=== PATIENT | male | born 1955 | race Caucasian/White ===

== ENCOUNTER 2017-06-10 11:24 | Observation (INO) | payer SELFPAY ==
[~2017-06-10 11:24] MED LIST: Gadobenate Dimeglumine 529 MG/1 ML (20ML VIAL) ONE
[2017-06-10] MEDS ORDERED: Dexamethasone 10 MG/ML VIAL ONE (12:14)
--- NOTE | 2017-06-10 15:23 | HP ---
PRIMARY CARE PHYSICIAN: Dr. Eliazar Mcbride. REASON FOR ADMISSION: Dizziness. HISTORY OF PRESENT ILLNESS: A 61-year-old male who has a previous history of ischemic CVA as well as hypertension, diabetes type 2, and dyslipidemia, who initially went to [facility] for adalgisa luation of dizziness. The patient reports that this morning, he went [place] the post [place]. At that ti me, he was perfectly fine, but when he was returning from post office, he felt dizziness and spinning sensation in his head and he had with diaphoresis. The patient reports that he did not eat breakfas t this morning. He did not have any motor weakness. There was no slurred speech. He did not feel a ny tingling, numbness on any side of his extremity. The patient felt that he had exactly similar sym ptoms when he had a stroke in 03/2016 and that is why he concerned about and decided to go to local e mergency room. Patient had CT brain at [facility] which showed edema in the left frontal lobe, but without any other acute intracranial process and routine blood test was unremarkable. For further evaluation, this patient was transferred to our emergency room. Routine blood tests showed g lucose level 74 and potassium was 3.4. Patient denies any seizure activity. Patient reports that no rmally he is able to walk without any problem, but he sometimes trips without any reason. He denies any fever or chills. He denies any nausea, vomiting, headache. He denies any UTI symptoms . He denies any constipation, diarrhea, abdominal pain. He denies any palpitations or syncope. PAST MEDICAL HISTORY: 1. Ischemic CVA in 03/2016 2. Hypertension. 3. Diabetes type 2. 4. Dyslipidemia. PAST SURGICAL HISTORY: Tracheostomy several years ago. PAST PSYCHIATRIC HISTORY: Reviewed and negative. SOCIAL HISTORY: Patient lives at home. He drinks alcohol socially. He denies any smoking. He serena es any other illicit drug abuse. FAMILY HISTORY: No strong family history of premature coronary artery disease, stroke, or cancer. EMERGENCY ROOM COURSE: Patient was given aspirin at [facility]. ALLERGIES: No known drug allergy. CURRENT HOME MEDICATIONS: Lipitor 20 mg p.o. at bedtime and metformin 500 mg p.o. twice daily. REVIEW OF SYSTEMS: The following complete review of systems was negative, unless otherwise mentioned in the HPI or below: Constitutional: Weight loss or gain, ability to conduct usual activities. Sk in: Rash, itching. Eyes: Double vision, pain. ENT/Mouth: Nose bleeding, neck stiffness, pain, te nderness. Cardiovascular: Palpitations, dyspnea on exertion, orthopnea. Respiratory: Shortness of breath, wheezing, cough, hemoptysis, fever, or night sweats. Gastrointestinal: Poor appetite, abdo kane pain, heartburn, nausea, vomiting, constipation, or diarrhea. Genitourinary: Urgency, frequen cy, dysuria, nocturia. Musculoskeletal: Pain, swelling. Neurologic/Psychiatric: Anxiety, depressi on. Allergy/Immunologic: Skin rash, bleeding tendency. Please see my HPI for pertinent positive an d negative. All other review of system reviewed and negative except as mentioned in HPI. PHYSICAL EXAMINATION: VITAL SIGNS: Currently, blood pressure 118/80, pulse 83, respiratory rate 19, temperature 98.3, satu ration 99% on room air, weight 74.8 kilograms. GENERAL: The patient is currently alert, awake, in no acute distress. HEENT: Head: Normocephalic, atraumatic. Eyes: Pupils round, reactive to light. Extraocular muscl e intact. ENT: Oropharynx within normal limits. Moist mucous membranes. No oral lesion, no pharyn geal erythema, no exudate. NECK: Supple, no JVD, no thyromegaly, no carotid bruit, no jugular venous distention. LUNGS: Clear to auscultation without any rhonchi or rales. CARDIAC: S1 and S2 regular without any murmur. ABDOMEN: Soft, bowel sounds present, nontender, nondistended. No organomegaly, no mass, no suprapub ic tenderness. BACK EXAMINATION: Unremarkable, no CVA tenderness. EXTREMITIES: Upper extremities, passive movement of all joints are normal. Lower extremities: No e hira. Good peripheral pulsation. SKIN: No skin rash. HEMATOLOGICAL SYSTEM: No lymphadenopathy. PSYCHIATRIC: Normal affect. NEUROLOGIC: Nonfocal examination. Patient is alert and oriented x3. Cranial nerves II-XII intact. Motor and sensation within normal limits. No focal neurological deficit. No cerebellar sign. Plan tar bilateral flexor. SIGNIFICANT LABORATORY DATA: 1. CBC: WBC 12.6, hemoglobin 16.0, platelets 234. INR 0.9. 2. BMP: Sodium 140, potassium 3.4, chloride 102, carbon dioxide 26, anion gap 15, BUN 16, creatinin e 0.94, glucose 74, calcium 10.0. 3 LFT: AST 17, ALT 18, alkaline phosphatase 95, albumin 4.2. Alcohol level less than 10. 4. CT brain showing no acute intracranial process, probable frontal lobe edema. 5. EKG showing normal sinus rhythm without any ischemic changes. ASSESSMENT AND PLAN: 1. Dizziness. Differential diagnosis is hypoglycemia. His blood sugar was found with 74 when he we nt to [facility], associated diaphoresis and dizziness that could be from hypoglycemia now . CT brain finding of probable edema in his left frontal lobe and underlying mass cannot be entirely excluded. That is why we will do MRI brain, but our probability of having underlying tumor is less likely, given he does not have any headache and acute onset of symptoms argues against brain tumor. Underlying cardiac arrhythmia also needs to be excluded and that is why he will need cardiac monitori ng and we will do serial cardiac enzymes to rule out acute coronary syndrome and check lipid profile tomorrow morning and observe neurologically while in hospital. 2. Diabetes, type 2. We will continue insulin as per sliding scale per protocol. Diabetic diet kate l be given. 3. Dyslipidemia. We will check lipid profile tomorrow and continue Lipitor 20 mg p.o. at bedtime. 4. Hypertension, currently well controlled. We will use p.r.n. basis blood pressure medication. If blood pressure requires any medication then we will start lisinopril on his regimen. For further ev aluation, we will also do carotid Doppler and echocardiography during this admission. 5. Deep venous thrombosis prophylaxis not needed, because we are expecting discharge in 24 hours. 6. Gastrointestinal prophylaxis, Pepcid 20 mg p.o. b.i.d. CODE STATUS: Patient is FULL CODE. Patient's daughter is surrogate decision maker. Disposition plan based on above-mentioned investigation results, likely within 24-48 hours. Neurosgoevanny mccann will be consulted for their opinion as well.
[2017-06-10] MEDS ORDERED: Loperamide HCl 2 MG CAP PO PRN (15:36)
[2017-06-10] MEDS ORDERED: Chloraseptic Spray 180 ml Bottle PO PRN (15:36)
[2017-06-10] MEDS ORDERED: Milk Of Magnesia 30 ML UDCUP PO PRN (15:36)
[2017-06-10] MEDS ORDERED: Sodium Chloride 0.65% Nasal 44 ML BOT EA NARE PRN (15:36)
[2017-06-10] MEDS ORDERED: hydrALAZINE 20 MG/ML VIAL SLOW IVP PRN (15:36)
[2017-06-10] MEDS ORDERED: Artificial Tears 18 DROP/0.9 ML EA EYE PRN (15:36)
[2017-06-10] MEDS ORDERED: Potassium Chloride 20 MEQ TAB PO SCH (15:36)
[2017-06-10] MEDS ORDERED: Mag-Al 1200 mg/1200 mg/30 ML UDCUP PO PRN (15:36)
[2017-06-10] MEDS ORDERED: Dextrose 5% in Water 1,000 ML IV PRN (15:36)
[2017-06-10] MEDS ORDERED: Ondansetron HCl/PF 4 MG/2 ML Vial IVP PRN (15:36)
[2017-06-10] MEDS ORDERED: Senokot 8.6 MG TAB PO PRN (15:36)
[2017-06-10] MEDS ORDERED: Acetaminophen 325 MG TAB PO PRN (15:36)
[2017-06-10] MEDS ORDERED: HumaLOG 300 UNITS/3 ML VIAL SC PRN (15:36)
[2017-06-10] MEDS ORDERED: Ondansetron ODT 4 MG TAB PO PRN (15:36)
[2017-06-10] MEDS ORDERED: Loratadine 10 MG TAB PO PRN (15:36)
[2017-06-10] MEDS ORDERED: HYDROcodone/Acetaminophen 5/325 mg Tablet PO PRN (15:36)
[2017-06-10] MEDS ORDERED: Zolpidem Tartrate 5 MG TAB PO PRN (15:36)
[2017-06-10] MEDS ORDERED: Dextrose 50% Abboject 50 ML SYRINGE SLOW IVP PRN (15:36)
[2017-06-10] MEDS ORDERED: Diabetic Tussin 200 MG/10 ML UDCUP PO PRN (15:36)
[2017-06-10] MEDS ORDERED: Eucerin (Mineral Oil/Petrolatum,White) 30 gm Jar TOP PRN (15:36)
[2017-06-10 15:53] VITALS: BMI 25.0
--- NOTE | 2017-06-10 16:18 | MRI ---
MRI BRAIN WITH AND WITHOUT IV CONTRAST: HISTORY: Facial droop and weakness. Abnormal CT scan. FINDINGS: Correlation is made with the noncontrast CT scan from earlier today. There is ventricular sulcal pro minence due to cortical atrophy. Multiple foci of T2 prolongation in the periventricular white matte r consistent with chronic small vessel ischemic disease. Old lacunar infarct is seen in the left bas al ganglia. No restricted diffusion is identified. No evidence of a transcortical infarct, hemorrha ge, mass, midline shift, or abnormal extraaxial fluid collections is seen. No abnormal post contrast enhancement is noted. There is mild mucosal disease in the paranasal sinuses. IMPRESSION: 1. No CT evidence of acute intracranial process or mass. 2. Cortical atrophy. 3. Chronic small-vessel ischemic disease. 4. Old lacunar infarct in the left basal ganglia. POS: [facility]
[2017-06-10] MEDS: HumaLOG 300 UNITS/3 ML VIAL SC PRN ×2 (17:12→21:10)
--- NOTE | 2017-06-10 18:50 | ULT ---
BILATERAL CAROTID DOPPLER ULTRASOUND: 06/10/17 HISTORY: Dizziness. COMPARISON: None. TECHNIQUE: Real time tripp scale color doppler with spectral analysis of the extracranial carotid arteries was pe rformed and vertebral arteries. There is increased peak systolic velocity in the right external carotid artery. Moderate plaque of william th carotid bulbs. Antegrade flow in both vertebral arteries. No abnormal increased velocity within the internal carotid arteries. There is increased peak systolic velocity within the left external carotid artery. Right ICA/CCA of 1.06, left ICA/CCA ratio of 1.05. IMPRESSION: 1. No hemodynamically significant stenosis of the internal carotid arteries. 2. Antegrade flow both vertebral arteries. 3. Increased peak systolic velocity within the external carotid arteries bilaterally. POS: [facility]
[2017-06-10 19:15] LABS: CKMB 1.5 ng/mL (0-6.6); Troponin I 0.012 ng/mL (< 0.028)
[2017-06-10] MEDS: Famotidine 20 MG TAB PO SCH (20:26)
[2017-06-10] MEDS ORDERED: Atorvastatin Calcium 20 MG TAB PO SCH (21:00)
[2017-06-10 21:26] LABS: CKMB 1.2 ng/mL (0-6.6); Troponin I Less than 0.010 ng/mL (< 0.028)
--- NOTE | 2017-06-11 04:41 | CON ---
DATE OF CONSULTATION: 06/10/2017 This is Eder Mcintosh PA-C dictating for Dr. Gray Santos. This is a 50-minute initial patient consult, which greater than 50% of the exam was spent in counseli ng and coordinating patient's care. Remainder of the exam was spent in review of patient's medical r ecords and review of appropriate imaging studies. CHIEF COMPLAINT: Slurred speech. HISTORY OF PRESENT ILLNESS: Mr. Francis is a pleasant 61-year-old male who presents to [facility] with complaints of slurred speech. The patient states he was overall not feeling well ear lier today and had an episode of left frontal headache and slurred speech with nausea and vomiting an d an episode of blurred vision. Currently, his symptoms have resolved other than some left frontal h eadache. The patient states that he has a history of CVA, which he believes occurred on the right, w hich had similar presenting symptoms; however, no residual weakness in the arms or legs. He was give n 325 mg aspirin in the ER, he was thought to have an acute stroke. Review of patient's head CT show s a small amount of vasogenic edema and perhaps atrophy in the left frontal and paraventricular area. Neurosurgery is asked to consult regarding this. On physical examination, the patient is awake, alert, and appropriate. His GCS currently is 15. His speech is clear and coherent. Follows commands equally in all 4 extremities. Pupils are equal, rou nd and reactive bilaterally. There is no horizontal nystagmus. He has no pronator drift. He has fu ll strength with perhaps trace weakness in the left upper extremity, but otherwise has full strengths in all the other extremities. He is able to correctly identify a pen and correctly define the defin ition of an island. IMPRESSION DIAGNOSIS: History of cerebrovascular accident with edema noted in the left frontal area on CT scan. PLAN: We have ordered an MRI of the brain with and without contrast in review of this shows no jose elias rning brain mass. It is likely that this is edema related to previous CVA. Nonetheless, the patient does not require neurosurgical intervention. We will allow our medical colleagues to continue gaurang p for the patient, although we will plan for repeat MRI in the next 6 weeks on an outpatient basis. The patient is currently neurologically stable and there is no need for repeat or any additional imag ing from our standpoint. Please call with any questions or changes in patient's neurologic status.
[2017-06-11 06:04] LABS: #Lymphocytes 0.9 thou/uL (1.20-3.40); #Monocytes 0.4 thou/uL (0.11-0.59); #Neutrophils 9.4 thou/uL (1.40-6.50); %Basophils 0.4 % (0.0-1.0); %Eosinophils 0.1 % (0.0-10.0); %Lymphocytes 8.5 % (21.0-51.0); %Monocytes 3.3 % (0.0-10.0); %Neutrophils 87.8 % (42.0-75.0); Hemoglobin 14.3 g/dL (14.0-18.0); Mean Corpuscular HGB CONC 33.6 g/dL (32.0-36.0); Mean Corpuscular Hemoglobin 30.5 pg (27.0-31.0); Mean Corpuscular Volume 90.6 fl (80.0-94.0); Mean Platelet Volume 8.9 fL (7.4-10.4); Platelet Count 208 thou/uL (130-400); RBC Distribution Width 11.7 % (11.5-14.5); Red Blood Cell (RBC) Count 4.68 mill/uL (4.70-6.10); White Blood Cell (WBC) Count 10.7 thou/uL (4.8-10.8)
[2017-06-11] MEDS: HumaLOG 300 UNITS/3 ML VIAL SC PRN ×2 (06:06→12:30)
[2017-06-11 06:16] LABS: Anion Gap 15 mmol/L (10-20); BUN (Urea Nitrogen) 23 mg/dL (8.4-25.7); Calc. Creatinine Clearance 76 mL/min (70-130); Calcium 9.5 mg/dL (7.8-10.44); Carbon Dioxide 23 mmol/L (23-31); Chloride 101 mmol/L (98-107); Cholesterol 178 mg/dl (< 200 Desired); Estimated GFR-MDRD 74; Glucose 304 mg/dL (80-115); HDL Cholesterol 59 mg/dL (>60 Neg Risk); LDL Cholesterol, Calculated 109 mg/dL; Potassium 4.7 mmol/L (3.5-5.1); Sodium 134 mmol/L (136-145); Triglycerides 49 mg/dL (Less than 150)
[2017-06-11] MEDS ORDERED: metFORMIN 500 MG TAB PO SCH (08:00)
[2017-06-11] MEDS: Famotidine 20 MG TAB PO SCH (08:41)
[2017-06-11] MEDS ORDERED: Non-Formulary Item 1 EACH (Insulin Glargine,Hum.Rec.Anlog [Lantus] 20 UNITS) SQ SCH (09:00)
[2017-06-11] MEDS ORDERED: Escitalopram Oxalate 10 mg Tablet PO SCH (09:00)
[2017-06-11] MEDS ORDERED: Insulin Detemir 100 UNITS/ML 20 UNITS in Pre-Filled Syringe 1 EACH SC SCH (09:00)
--- NOTE | 2017-06-11 09:45 | PDOC.PN ---
- Subjective Encounter Start Date: 06/11/17 Encounter Start Time: 07:10 - Objective Resuscitation Status: Resuscitation Status FULL:Full Resuscitation MAR Reviewed: Yes Vital Signs & Weight: Vital Signs (12 hours) Temp Pulse Resp BP Pulse Ox 06/11/17 08:06 97.7 F 77 16 06/11/17 08:00 97.8 F 80 16 144/81 H 99 06/11/17 04:00 97.7 F 77 16 141/72 H 98 06/11/17 00:00 97.5 F L 70 16 154/78 H 98 Weight Weight 160 lb I&O: 06/10/17 06/11/17 06/12/17 06:59 06:59 06:59 Intake Total 360 Balance 360 Result Diagrams: 06/11/17 05:18 06/11/17 05:18 Additional Labs: Accuchecks 06/11/17 06/10/17 06/10/17 05:46 20:57 16:11 POC Glucose 250 H 325 H 346 H EKG Reviewed by me: Yes Phys Exam - Physical Examination Constitutional: NAD HEENT: PERRLA, moist MMs, sclera anicteric Neck: no JVD, supple Respiratory: no wheezing, no rales, no rhonchi Cardiovascular: RRR, no significant murmur, no rub Gastrointestinal: soft, non-tender, no distention, positive bowel sounds Musculoskeletal: no edema, pulses present Neurological: non-focal, normal sensation, moves all 4 limbs Psychiatric: normal affect, A&O x 3 Skin: no rash, normal turgor Dx/Plan (1) Dizziness Code(s): R42 - DIZZINESS AND GIDDINESS Status: Acute (2) Orthostatic hypotension Code(s): I95.1 - ORTHOSTATIC HYPOTENSION Status: Acute (3) Depression Code(s): F32.9 - MAJOR DEPRESSIVE DISORDER, SINGLE EPISODE, UNSPECIFIED Status : Chronic (4) Diabetes type 2, controlled Code(s): E11.9 - TYPE 2 DIABETES MELLITUS WITHOUT COMPLICATIONS Status: Chronic (5) Dyslipidemia Code(s): E78.5 - HYPERLIPIDEMIA, UNSPECIFIED Status: Chronic (6) Hypertension Code(s): I10 - ESSENTIAL (PRIMARY) HYPERTENSION Status: Chronic - Plan cont current plan of care * medication reviewed as below * symptomatic treatment * stable for discharge after echo done * see discharge summery Review of Systems - Review of Systems Eyes: negative: Pain, Vision Change, Conjunctivae Inflammation, Eyelid Inflammation, Redness, Other ENT: negative: Ear Pain, Ear Discharge, Nose Pain, Nose Discharge, Nose Congestion, Mouth Pain, Mouth Swelling, Throat Pain, Throat Swelling, Other Respiratory: negative: Cough, Dry, Shortness of Breath, Hemoptysis, SOB with Excertion, Pleuritic Pain, Sputum, Wheezing Cardiovascular: negative: chest pain, palpitations, orthopnea, paroxysmal nocturnal dyspnea, edema, light headedness, other Gastrointestinal: negative: Nausea, Vomiting, Abdominal Pain, Diarrhea, Constipation, Melena, Hematochezia, Other Genitourinary: negative: Dysuria, Frequency, Incontinence, Hematuria, Retention , Other Musculoskeletal: negative: Neck Pain, Shoulder Pain, Arm Pain, Back Pain, Hand Pain, Leg Pain, Foot Pain, Other Skin: negative: Rash, Lesions, Levy, Bruising, Other - Medications/Allergies Allergies/Adverse Reactions: Allergies Allergy/AdvReac Type Severity Reaction Status Date / Time No Known Allergies Allergy Unverified 06/10/17 15:38 Medications: Current Medications Acetaminophen (Tylenol) 650 mg PO Q4H PRN PRN Reason: Headache/Fever or Pain Last Admin: 06/10/17 17:11 Dose: 650 mg Hydrocodone Bitart/Acetaminophen ([place] 5/325) 1 tab PO Q4H PRN PRN Reason: Moderate Pain (4-6) Last Admin: 06/11/17 08:42 Dose: 1 tab Al Hydroxide/Mg Hydroxide (Maalox) 30 ml PO Q6H PRN PRN Reason: Heartburn or Indigestion Artificial Tears (Tears Naturale) 0 drop EA EYE PRN PRN PRN Reason: Dry Eyes Aspirin (Aspirin Chewable) 81 mg PO DAILY [facility] Last Admin: 06/11/17 08:42 Dose: 81 mg Atorvastatin Calcium (Lipitor) 20 mg PO HS [facility] Last Admin: 06/10/17 20:26 Dose: 20 mg Dextrose/Water (Dextrose 50%) 25 gm SLOW IVP PRN PRN PRN Reason: Hypoglycemia Escitalopram Oxalate (Lexapro) 10 mg PO DAILY [facility] Last Admin: 06/11/17 08:42 Dose: 10 mg Famotidine (Pepcid) 20 mg PO BID [facility] Last Admin: 06/11/17 08:41 Dose: 20 mg Glucagon (Glucagon) 1 mg IM PRN PRN PRN Reason: Hypoglycemia Guaifenesin (Robitussin Sf) 200 mg PO Q4H PRN PRN Reason: Cough Hydralazine HCl (Apresoline) 10 mg SLOW IVP Q4H PRN PRN Reason: Systolic BP > 180 Dextrose/Water (D5w) 1,000 mls @ 0 mls/hr IV .Q0M PRN; As Directed PRN Reason: Hypoglycemia Insulin Detemir 20 units/ (Miscellaneous Medication) 0.2 mls @ 0 mls/hr SC DAILY [facility] PRN Reason: As Directed Last Admin: 06/11/17 08:44 Dose: 0.2 mls Insulin Human Lispro (Humalog) 0 units SC .MODERATE SLIDING SC PRN PRN Reason: Moderate Correctional Scale Last Admin: 06/11/17 06:06 Dose: 4 unit Insulin Human Lispro (Humalog) 0 units SC .BEDTIME SLIDING SC PRN PRN Reason: Bedtime Correctional Scale Loperamide HCl (Imodium) 2 mg PO PRN PRN PRN Reason: Diarrhea/Loose Stools Loratadine (Claritin) 10 mg PO DAILYPRN PRN PRN Reason: Sinus Symptoms Magnesium Hydroxide (Milk Of Magnesium) 30 ml PO DAILYPRN PRN PRN Reason: Constipation Metformin HCl (Glucophage) 1,000 mg PO [facility] Last Admin: 06/11/17 08:41 Dose: 1,000 mg Mineral Oil/White Petrolatum (Eucerin Cream) 0 gm TOP BIDPRN PRN PRN Reason: Dry Skin Ondansetron HCl (Zofran Odt) 4 mg PO Q6H PRN PRN Reason: Nausea/Vomiting Ondansetron HCl (Zofran) 4 mg IVP Q6H PRN PRN Reason: Nausea/Vomiting Phenol (Chloraseptic [place] 180 Ml Bot) 0 ml PO PRN PRN PRN Reason: Sore Throat Senna (Senokot) 2 tab PO HSPRN PRN PRN Reason: Constipation Sodium Chloride (Page Nasal [place] 0.65%) 0 ml EA NARE QIDPRN PRN PRN Reason: Nasal Congestion Zolpidem Tartrate (Ambien) 5 mg PO HSPRN PRN PRN Reason: Insomnia Last Admin: 06/10/17 21:10 Dose: 5 mg
--- NOTE | 2017-06-11 10:49 | DIS ---
PRIMARY CARE PHYSICIAN: Dr. Eliazar Mcbride DATE OF ADMISSION: 06/10/2017 DATE OF DISCHARGE: 06/11/2017 DISCHARGE DISPOSITION: Home. PRIMARY DISCHARGE DIAGNOSES: Dizziness due to orthostatic hypotension. SECONDARY DISCHARGE DIAGNOSES: Hypertension, dyslipidemia, diabetes type 2, depression, history of c erebrovascular accident. PRIMARY PROCEDURE/OPERATION: None. RADIOLOGICAL INVESTIGATION: MRI brain did not show any brain mass. It showed old infarction in the basal ganglia on the left side, cortical atrophy and chronic ischemic white matter changes. Carotid Doppler did not show any stenosis. Echocardiography result is pending. SIGNIFICANT LABS: WBC 10.7, hemoglobin 14.3, platelet 208. Sodium 134, potassium 4.7, BUN 23, creat inine 1.02, calcium 9.5, LDL 109. Cardiac enzymes negative. DISCHARGE MEDICATIONS: The patient will continue all his previous medication including amlodipine 10 mg p.o. daily, aspirin 81 mg p.o. daily, Lexapro 10 mg p.o. daily, Lantus 20 units subcu daily, lova statin 20 mg p.o. daily, metformin 1000 mg p.o. daily. CONTRAINDICATIONS: None. CODE STATUS: FULL CODE. INPATIENT CONSULTANTS: None. ALLERGIES: No known drug allergy. DISCHARGE PLAN: Post hospital, the patient is instructed to follow up with primary care physician in 1 week. Primary care physician can follow up on echo result. 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 Neurosurgeon saw this patient and they recommended MRI brain. MRI brain was done an d that ruled out any brain mass or any acute CVA. This patient's orthostatic vitals were positive. We provided patient education about prevention of orthostatic hypotension related symptoms and fall p revention, we are suspecting from diabetic autonomic dysfunction for his orthostatic hypotension rath er than volume depletion. At this point we are going to continue all his previous medication and pat ient education about conservative treatment of orthostatic hypotension is given. His telemetry remai liat unremarkable and serial cardiac enzyme are negative and we ruled out cardiac etiology as well as Neurology etiology while in the hospital. The patient remained asymptomatic while in hospital. We a lso suspected for dizziness one of the reasons is a mild hypoglycemia because patient did not eat on the day when he was having symptoms. Echocardiography is done, but official report is pending by the time of dictation. The patient is seen and examined at bedside. Please see my progress note from today for further deta ils.
[2017-06-11 12:21] VITALS: BP 157/83; TEMP 98.1
--- NOTE | 2017-06-11 14:18 | PRG ---
DATE OF SERVICE: 06/11/2017 This is a 30 minute initial hospital visit note in which 30 minutes were spent in review the imaging, record, evaluation, examination of the patient, and formulation of a plan. Greater than 50% of the time was spent in counseling on Dwain Francis. CHIEF COMPLAINT: Concern of a left basal ganglia mass, but identified to be chronic changes of left- sided stroke. HISTORY OF PRESENT ILLNESS: I reviewed the notes of my colleague Eder Mcintosh PA-C, and agree wit h its content. Mr. Francis is a very pleasant 61-year-old man who evidently reported speech abnormalit y yesterday. In talking with him, the patient states he gets this ever since he had a stroke last ye ar that affected the right side of his body and involving in the left side of the brain. He states h e gets the speech hesitancy when he tries to speak to quickly. The last head CT demonstrated hypoden sity in the left basal ganglia and subcortical white matter and an MRI was recommended. There is an area of encephalomalacia as well in the left basal ganglia. Review of an MRI demonstrates no evidenc e of acute stroke and no evidence of neoplasm. Frankly, it appears to be a chronic infarct. I have told the patient this. PHYSICAL EXAMINATION: He is alert, appropriate, has full strength in his bilateral upper and lower e xtremity myotomes. His speech is fluent. He is alert and appropriate. IMPRESSION AND PLAN: I would recommend dismissal from a neurosurgical standpoint if it is fine with our other consulting colleagues. I do not think there is any need for neurosurgical followup and I s uspect this is just a chronic infarct. Follow up as needed. I will sign off. DIAGNOSIS: History of left basal ganglia stroke.
== END 2017-06-11 13:00 | disposition home or self-care (01) ==
LOC: ERS 11:24 → 2SE 13:34
PROVIDERS: ADMIT Internal Medicine; ATTEND Internal Medicine
DX: I95.1 Orthostatic hypotension (principal); I10 Essential (primary) hypertension; E78.5 Hyperlipidemia, unspecified; E11.9 Type 2 diabetes mellitus without complications; F32.9 Major depressive disorder, single episode, unspecified; Z79.84 Long term (current) use of oral hypoglycemic drugs; Z79.899 Other long term (current) drug therapy; Z86.73 Personal history of transient ischemic attack (TIA), and cerebral infarction without residual deficits
CPT/HCPCS: 36415; 36416; 70553; 80048; 80061; 85025; 93880; 96374; A9579; G0378; J1100; J1815

== ENCOUNTER 2018-04-16 18:59 | Inpatient (IN) | payer SELFPAY ==
--- NOTE | 2018-04-16 20:40 | RAD ---
EXAM: LEFT FOOT THREE VIEWS: 04/16/18 HISTORY: Cellulitis left foot. There are arteriovascular calcifications. There are some degenerative changes with some hallux valgus deformity of the great toe. Mild soft tissue fullness over the dorsal aspect of the forefoot and the second toe. No acute fracture, dislocation or other acute process. IMPRESSION: Mild degenerative changes. Minimal soft tissue swelling over the dorsal aspect of the forefoot and th e second toe. No fracture or dislocation. POS: [facility]
[2018-04-16 23:33] LABS: #Eosinphils 0.1 thou/uL (0.0-0.7); #Monocytes 1.2 thou/uL (0.11-0.59); #Neutrophils 10.1 thou/uL (1.40-6.50); %Basophils 0.2 % (0.0-1.0); %Eosinophils 0.9 % (0.0-10.0); %Lymphocytes 14.7 % (21.0-51.0); %Monocytes 8.8 % (0.0-10.0); %Neutrophils 75.4 % (42.0-75.0); Hemoglobin 13.8 g/dL (14.0-18.0); Mean Corpuscular Hemoglobin 29.7 pg (27.0-31.0); Mean Platelet Volume 7.8 fL (7.4-10.4); Platelet Count 251 thou/uL (130-400); RBC Distribution Width 11.3 % (11.5-14.5); Red Blood Cell (RBC) Count 4.64 mill/uL (4.70-6.10); White Blood Cell (WBC) Count 13.4 thou/uL (4.8-10.8)
[2018-04-16 23:52] LABS: ALT (SGPT) 9 U/L (8-55); AST (SGOT) 10 U/L (5-34); Albumin 3.6 g/dL (3.4-4.8); Alkaline Phosphatase 82 U/L (40-150); Anion Gap 12 mmol/L (10-20); BUN (Urea Nitrogen) 10 mg/dL (8.4-25.7); Bilirubin, Total 0.7 mg/dL (0.2-1.2); Calc. Creatinine Clearance 0 mL/min (70-130); Calcium 9.7 mg/dL (7.8-10.44); Carbon Dioxide 29 mmol/L (23-31); Chloride 100 mmol/L (98-107); Estimated GFR-MDRD 73; Globulin 3.7 g/dL (2.4-3.5); Glucose 101 mg/dL (80-115); Potassium 3.6 mmol/L (3.5-5.1); Protein, Total 7.3 g/dL (5.8-8.1); Sodium 137 mmol/L (136-145)
[2018-04-17] MEDS ORDERED: Piperacillin/Tazobactam 3.375 GM VIAL ONE (00:29)
[2018-04-17] MEDS: Morphine 4 MG/ML VIAL SLOW IVP PRN (02:19)
[2018-04-17] MEDS ORDERED: Bisacodyl 5 MG TAB PO PRN (02:21)
[2018-04-17] MEDS ORDERED: Calcium Carbonate 500 MG ChewTAB PO PRN (02:21)
[2018-04-17] MEDS ORDERED: Dextrose 50% Abboject 50 ML SYRINGE SLOW IVP PRN (02:21)
[2018-04-17] MEDS ORDERED: Dextrose 5% in Water 1,000 ML IV PRN (02:21)
[2018-04-17] MEDS ORDERED: Acetaminophen 325 MG TAB PO PRN (02:21)
[2018-04-17] MEDS ORDERED: HumaLOG 300 UNITS/3 ML VIAL SC PRN (02:21)
[2018-04-17] MEDS ORDERED: Senokot S 8.6-50 MG TAB PO PRN (02:21)
[2018-04-17 02:41] LABS: Bilirubin Negative (Negative); Blood, Urine Trace (Negative); Clarity CLEAR (Clear); Glucose, Urine (Dipstick) 100 mg/dL (Negative); Leukocyte Negative (Negative); Nitrite Negative (Negative); Protein, Urine (Dipstick) 100 mg/dL (Neg-Trace); Specific Gravity, Urine 1.005 (1.002-1.036); Urobilinogen 0.2 mg/dL (0.2-1.0); pH, Urine 6.5 (5.0-9.0)
[2018-04-17 02:44] LABS: Bacteria/HPF None Seen HPF (None Seen); Hyaline Casts/LPF 0-3 HYALINE CAST LPF (0-3 Hyaline); RBC/HPF 0-3 HPF (0-3); Squamous Epithelial None Seen HPF (0-3); WBC/HPF None Seen HPF (0-3)
[2018-04-17 06:18] LABS: #Eosinphils 0.2 thou/uL (0.0-0.7); #Lymphocytes 2.1 thou/uL (1.20-3.40); #Monocytes 0.9 thou/uL (0.11-0.59); #Neutrophils 7.3 thou/uL (1.40-6.50); %Basophils 0.3 % (0.0-1.0); %Eosinophils 1.4 % (0.0-10.0); %Lymphocytes 19.6 % (21.0-51.0); %Neutrophils 69.7 % (42.0-75.0); Mean Corpuscular HGB CONC 33.9 g/dL (32.0-36.0); Mean Corpuscular Hemoglobin 30.9 pg (27.0-31.0); Platelet Count 248 thou/uL (130-400); RBC Distribution Width 11.2 % (11.5-14.5); Red Blood Cell (RBC) Count 4.22 mill/uL (4.70-6.10); White Blood Cell (WBC) Count 10.4 thou/uL (4.8-10.8)
[2018-04-17 06:35] LABS: Anion Gap 12 mmol/L (10-20); BUN (Urea Nitrogen) 9 mg/dL (8.4-25.7); Calc. Creatinine Clearance 90 mL/min (70-130); Calcium 8.9 mg/dL (7.8-10.44); Carbon Dioxide 25 mmol/L (23-31); Chloride 104 mmol/L (98-107); Estimated GFR-MDRD 87; Glucose 86 mg/dL (80-115); Potassium 3.5 mmol/L (3.5-5.1); Sodium 137 mmol/L (136-145)
[2018-04-17] MEDS: Amlodipine 10 MG TAB PO SCH (08:32)
[2018-04-17] MEDS: Aspirin 81 mg Enteric Coated Tablet PO SCH (08:32)
[2018-04-17] MEDS: Escitalopram Oxalate 10 mg Tablet PO SCH (08:33)
[2018-04-17] MEDS: Insulin Glargine 20 UNITS in Pre-Filled Syringe 1 EACH SC SCH (08:33)
[2018-04-17] MEDS: Lovastatin 20 MG TAB PO SCH (08:33)
[2018-04-17] MEDS: Enoxaparin Sodium 40 MG/0.4 ML SYRINGE SC SCH (08:33)
[2018-04-17] MEDS: Famotidine 20 MG TAB PO SCH ×2 (08:33→21:29)
[2018-04-17] MEDS: Famotidine/PF 20 mg/2ml Vial SLOW IVP SCH ×2 (08:34→21:39)
[2018-04-17] MEDS: Vancomycin HCl 1 GM in Premix Bag 1 BAG IVPB SCH ×2 (10:49→21:35)
[2018-04-17] MEDS: HumaLOG 300 UNITS/3 ML VIAL SC PRN (18:10)
--- NOTE | 2018-04-17 21:13 | HP ---
CHIEF COMPLAINT: Left foot blister and ulcer. HISTORY OF PRESENT ILLNESS: This is a 62-year-old male with past medical history of diabetes mellitus type 2, on insulin; hyperlipidemia, hypercholesterolemia, and hypertension, presenting with left second toe blister and ulcer. At this point, the patient states that his left toe is hurting, has a lot of pain and he is also having fevers. Per the patient, last fever was 100. The patient stated that it all started about 3 days prior to the day of admission when he had a blister that popped and started see like a wound, which now has turned to be an ulcer. The patient states that right now he is having severe pain, which is 8/10. Otherwise, the patient denies any chills, nausea, vomiting, dizziness, headaches, chest pain, palpitation, abdominal pain, dysuria, hematuria, hematochezia, constipation, and diarrhea. REVIEW OF SYSTEMS: Positive for fevers and pain, otherwise as documented in the HPI. All systems have been reviewed and are negative. PAST MEDICAL HISTORY: Cerebrovascular accident in 2016; diabetes mellitus, on insulin; hyperlipidemia, hypercholesterolemia, and hypertension. FAMILY HISTORY: Reviewed and noncontributory to this visit. PAST SURGICAL HISTORY: No surgical history. PSYCHIATRIC HISTORY: No previous psych history. SOCIAL HISTORY: The patient drinks daily. The patient denies illicit drug use and the patient currently uses tobacco and chews tobacco. ALLERGIES: NO KNOWN DRUG ALLERGIES. CURRENT MEDICATIONS: The patient takes; 1. Lantus 25 units. 2. Metformin 500 b.i.d. PHYSICAL EXAMINATION: VITAL SIGNS: The patient's blood pressure is 161/77, pulse of 102, respiratory rate of 18, temperature of 99.4, and O2 saturation is 96%. GENERAL: The patient is alert and oriented x3, not in acute distress. HEENT: Normocephalic and atraumatic. Pupils are equally round and reactive to light. Extraocular movements are intact. No scleral icterus. No conjunctival pallor. NECK: Trachea is midline. Full range of motion. LUNGS: Clear to auscultation bilaterally. No wheezing, no rales, no rhonchi appreciated. CARDIAC: Positive S1 and S2. Regular rate and rhythm. No murmurs, no gallops, no rubs appreciated. ABDOMEN: Soft, nontender, and nondistended. Positive bowel sounds in all quadrants. EXTREMITIES: The patient has 5/5 upper extremity strength and good pulses bilaterally at the radial aspect. Lower extremities; the patient has 5/5 lower extremity strength. Sensation is intact. The patient has good pulses at the DP region bilaterally. At the left foot, the patient does have ulceration at the second toe with some erythema. There is odious smell and there is discharge purulent drain at of the second toe. NEUROLOGIC: Cranial nerves 2 through 12 grossly intact. No neurologic deficits noted. SKIN: Kindly refer to left lower extremity description. PSYCHIATRIC: Normal affect. IMAGING DATA: Imaging showed that there was mild degenerate changes, minimal soft tissue swelling over the dorsal aspect of the forefoot and second toe. There is no structural dislocation noted. LABORATORY DATA: WBC is 13.4, hemoglobin is 13.8, hematocrit is 41.8, and platelet count is 251. D-dimer is 0.43. Sodium is 137, potassium is 3.6, chloride is 100, carbon dioxide of 29, BUN is 10, and creatinine is 1.03. Urinalysis is negative for leukocyte esterases and nitrites. ASSESSMENT AND PLAN: This is a 62-year-old male being admitted for; 1. Left second toe ulcer/cellulitis, rule out osteomyelitis. At this time, we have ordered MRI of the left toe. We have started the patient on broad-spectrum vancomycin and Zosyn. We will continue the patient on these medications. We will follow up on cultures and we will tailor antibiotics based on cultures. We will continue to monitor the patient closely. 2. Hypertension. We will monitor the patient's blood pressure closely and we will treat accordingly. 3. Diabetes mellitus. We will continue the patient's insulin sliding scale. Currently, the patient blood glucose is controlled. We will continue to monitor the patient. 4. Hyperlipidemia. Continue the patient on home medications. We will monitor the patient closely. 5. Deep venous thrombosis and gastrointestinal prophylaxis. Job ID: [id number]
[2018-04-17] MEDS: HYDROcodone/Acetaminophen 5/325 mg Tablet PO PRN (21:29)
[2018-04-17] MEDS: Piperacillin/Tazobactam 3.375 GM in Sodium Chloride 0.9% 100 ML IVPB SCH (21:30)
[2018-04-17] MEDS: Zolpidem Tartrate 5 MG TAB PO PRN (21:30)
[2018-04-18] MEDS: Piperacillin/Tazobactam 3.375 GM in Sodium Chloride 0.9% 100 ML IVPB SCH ×4 (03:08→20:18)
[2018-04-18] MEDS: Enoxaparin Sodium 40 MG/0.4 ML SYRINGE SC SCH (09:25)
[2018-04-18] MEDS: Amlodipine 10 MG TAB PO SCH (09:26)
[2018-04-18] MEDS: Lovastatin 20 MG TAB PO SCH (09:26)
[2018-04-18] MEDS: Famotidine 20 MG TAB PO SCH ×2 (09:26→20:19)
[2018-04-18] MEDS: Aspirin 81 mg Enteric Coated Tablet PO SCH (09:26)
[2018-04-18] MEDS: Insulin Glargine 20 UNITS in Pre-Filled Syringe 1 EACH SC SCH (09:26)
[2018-04-18] MEDS: Escitalopram Oxalate 10 mg Tablet PO SCH (09:26)
[2018-04-18] MEDS: Vancomycin HCl 1 GM in Premix Bag 1 BAG IVPB SCH ×2 (11:30→22:19)
[2018-04-18] MEDS: Famotidine/PF 20 mg/2ml Vial SLOW IVP SCH ×2 (12:45→20:20)
[2018-04-18] MEDS: HumaLOG 300 UNITS/3 ML VIAL SC PRN (12:48)
--- NOTE | 2018-04-18 15:04 | PDOC.PN ---
- Subjective Encounter Start Date: 04/18/18 Encounter Start Time: 15:03 Patient lying in bed, he reports feeling better today. No chest pain, shortness of breath or abdominal pain. He reports pain in left foot and ankle, however improved. - Objective Resuscitation Status - Order Detail: 04/17/18 02:21 Resuscitation Status Routine Resuscitation Status: FULL: Full Resuscitation MAR Reviewed: Yes Vital Signs & Weight: Vital Signs (12 hours) Temp Pulse Resp BP Pulse Ox 04/18/18 11:04 98.3 F 94 18 152/76 H 97 04/18/18 09:26 84 04/18/18 07:23 97.6 F 84 18 162/83 H 98 Weight Weight 166 lb 3.2 oz I&O: 04/17/18 04/18/18 04/19/18 06:59 06:59 06:59 Intake Total 400 Balance 400 Result Diagrams: 04/17/18 05:33 04/17/18 05:33 Additional Labs: Accuchecks 04/18/18 04/18/18 04/17/18 11:04 06:02 20:48 POC Glucose 229 H 114 H 99 04/17/18 16:00 POC Glucose 198 H Radiology Reviewed by me: Yes Phys Exam - Physical Examination Constitutional: NAD HEENT: PERRLA, moist MMs, oral pharynx no lesions, 2+ tonsils Neck: no nodes, no JVD Respiratory: no wheezing, no rales, clear to auscultation bilateral Cardiovascular: RRR, no significant murmur, no rub Gastrointestinal: soft, non-tender, positive bowel sounds Musculoskeletal: no edema, pulses present Neurological: non-focal, normal sensation, moves all 4 limbs Lymphatic: no nodes Psychiatric: normal affect, A&O x 3 Skin: no rash, normal turgor, cap refill <2 seconds Deviation from normal: ulcer present with dressing left second toe Dx/Plan (1) Ulcer of left second toe Code(s): L97.529 - NON-PRESSURE CHRONIC ULCER OTH PRT LEFT FOOT W UNSP SEVERITY Status: Acute (2) Diabetes type 2, controlled Code(s): E11.9 - TYPE 2 DIABETES MELLITUS WITHOUT COMPLICATIONS Status: Chronic (3) Dyslipidemia Code(s): E78.5 - HYPERLIPIDEMIA, UNSPECIFIED Status: Chronic (4) Hypertension Code(s): I10 - ESSENTIAL (PRIMARY) HYPERTENSION Status: Chronic - Plan cont current plan of care, continue antibiotics, DVT proph w/lovenox * Continue IV abx, 1 of 2 blood cultures positive, will order repeat cultures * Await MRI results, if concern for osteo ortho services will be consulted as well as ID * Continue other home medications * Pain management * Wound care * Monitor vitals and labs, White count improved
--- NOTE | 2018-04-18 15:58 | MRI ---
LEFT FOOT MRI WITHOUT IV CONTRAST: HISTORY: Blister on the top of the second toe that opened up several days ago with drainage, swelling, and soniya n without injury. FINDINGS: Multiplanar, multisequence MRI examination of the foot is performed. There is some soft tissue swell ing noted involving the distal second toe. Abnormal T2 hyperintense and T1 hypointense and STIR hype rintense abnormal signal within the middle and distal phalanges of the second toe, particularly the d istal phalanx, evidence for osteomyelitis. There is irregularity of the distal interphalangeal joint of the second toe, evidence for associated presumed septic arthritis. Arthrosis and degenerative ch anges are noted including the 1st metatarsophalangeal joint. No evidence for a drainable abscess. IMPRESSION: Evidence for osteomyelitis involving the middle and distal phalanges of the second toe with surroundi ng soft tissue cellulitis and abnormal distal interphalangeal joint consistent with coexistent presum ed septic arthritis. No drainable abscess. Generalized degenerative changes. POS: CHE
[2018-04-18] MEDS: HYDROcodone/Acetaminophen 5/325 mg Tablet PO PRN (20:18)
[2018-04-18] MEDS: Zolpidem Tartrate 5 MG TAB PO PRN (20:18)
[2018-04-18 21:56] LABS: Vancomycin, Trough 13.4 ug/mL
[2018-04-18] MEDS: Morphine 4 MG/ML VIAL SLOW IVP PRN (22:24)
[2018-04-19] MEDS: HYDROcodone/Acetaminophen 5/325 mg Tablet PO PRN ×2 (01:43→21:20)
[2018-04-19] MEDS: Piperacillin/Tazobactam 3.375 GM in Sodium Chloride 0.9% 100 ML IVPB SCH (04:02)
[2018-04-19] MEDS ORDERED: Sodium Chloride 0.65% Nasal 44 ML BOT EA NARE PRN (07:02)
[2018-04-19] MEDS ORDERED: Artificial Tears 18 DROP/0.9 ML EA EYE PRN (07:02)
[2018-04-19] MEDS ORDERED: hydrALAZINE 20 MG/ML VIAL SLOW IVP PRN (07:02)
[2018-04-19] MEDS ORDERED: Ondansetron ODT 4 MG TAB PO PRN (07:02)
[2018-04-19] MEDS ORDERED: Diabetic Tussin 200 MG/10 ML UDCUP PO PRN (07:02)
[2018-04-19] MEDS ORDERED: Loperamide HCl 2 MG CAP PO PRN (07:02)
[2018-04-19] MEDS ORDERED: Cepastat Lozenges 1 LOZ PO PRN (07:02)
[2018-04-19] MEDS ORDERED: Ondansetron PF 4 MG/2 ML Vial IVP PRN (07:02)
[2018-04-19] MEDS ORDERED: Eucerin (Mineral Oil/Petrolatum,White) 30 gm Jar TOP PRN (07:02)
[2018-04-19] MEDS ORDERED: Loratadine 10 MG TAB PO PRN (07:02)
[2018-04-19 07:54] LABS: #Eosinphils 0.3 thou/uL (0.0-0.7); #Lymphocytes 1.4 thou/uL (1.20-3.40); #Monocytes 0.7 thou/uL (0.11-0.59); #Neutrophils 2.8 thou/uL (1.40-6.50); %Basophils 0.4 % (0.0-1.0); %Eosinophils 4.9 % (0.0-10.0); %Lymphocytes 27.6 % (21.0-51.0); %Monocytes 12.7 % (0.0-10.0); %Neutrophils 54.3 % (42.0-75.0); Mean Corpuscular HGB CONC 32.8 g/dL (32.0-36.0); Mean Corpuscular Hemoglobin 29.6 pg (27.0-31.0); Mean Corpuscular Volume 90.2 fL (78.0-98.0); Mean Platelet Volume 7.7 fL (7.4-10.4); Platelet Count 254 thou/uL (130-400); RBC Distribution Width 11.1 % (11.5-14.5); White Blood Cell (WBC) Count 5.2 thou/uL (4.8-10.8)
[2018-04-19] MEDS ORDERED: Vancomycin HCl 1 GM in Premix Bag 1 BAG IVPB SCH (08:00)
[2018-04-19 08:19] LABS: Anion Gap 12 mmol/L (10-20); BUN (Urea Nitrogen) 9 mg/dL (8.4-25.7); Calc. Creatinine Clearance 82 mL/min (70-130); Calcium 9.1 mg/dL (7.8-10.44); Carbon Dioxide 26 mmol/L (23-31); Chloride 102 mmol/L (98-107); Estimated GFR-MDRD 78; Glucose 167 mg/dL (80-115); Potassium 4.1 mmol/L (3.5-5.1); Sodium 136 mmol/L (136-145)
--- NOTE | 2018-04-19 08:26 | HP ---
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 He lives by himself. Family lives nearby. He is insulin-dependent diabetic with hypertension and has developed a left second toe ulceration, demonstrating osteo by MRI. He has an ulceration over the distal phalanx and communicating with the phalanx and interphalangeal joint. Plan is for amputation of left second toe through the proximal phalanx, healing by secondary intention. We could do this under regional or general anesthesia. He is n.p.o. Hospitalist has admitted him and placed him on intravenous antibiotics, ceftriaxone without vancomycin. ALLERGIES: NONE. SOCIAL HISTORY: Tobacco, none. Alcohol, none. HOME MEDICATIONS: 1. Aspirin 81 mg a day. 2. Amlodipine 10 mg a day. 3. Metformin 1000 mg . 4. Lovastatin 20 mg daily. 5. Insulin 20 units subcu daily. 6. Escitalopram oxalate 10 mg daily. PAST SURGICAL HISTORY: Noncontributory. PAST MEDICAL HISTORY: Hypertension, diabetes. REVIEW OF SYSTEMS: Ten-point noncontributory. FAMILY HISTORY: Noncontributory. PHYSICAL EXAMINATION: VITAL SIGNS: Height 5 feet and 7 inches, 166 pounds, 26 BMI. Temperature 98.2, pulse 65, blood pressure 131/73. HEAD, EARS, EYES, NOSE AND THROAT: Unremarkable. LUNGS: Clear to auscultation. CARDIAC: Regular rate and rhythm without murmur or gallop. ABDOMEN: Soft and nontender. EXTREMITIES: Unremarkable. Left foot palpable posterior tibial. Hair on his foot and toes. Left second toe reveals that it is edematous, cellulitic, cellulitis extends over the dorsum of the foot to the mid foot. There is an open wound in the medial aspect of the left second toe the interphalangeal joint. There is marked swelling, edema, and redness. There is necrotic tissue. LABORATORY DATA: White count 10, hemoglobin 13. Accu-Cheks 99 to 229. Renal function is normal. ASSESSMENT AND PLAN: Diabetic infection of left second toe. We would recommend amputation of left second toe through the proximal phalanx. We will keep him n.p.o. and plan on doing this today. He understands the risks and benefits. Outpatient wound care can be arranged with a wound VAC. The patient states he has transportation to the hospital that he would like to do this with [facility] twice a week. After amputation, the patient will be on intravenous antibiotics in the hospital and then can be converted to oral antibiotics for 10 days and undergo wound VAC care with healing by secondary intention. I can see him in outpatient wound care clinic. [facility] will do wound VAC care. We would see him in about a week and a half. Anticipate discharge home mid week on oral antibiotics for 10 days. Job ID: [id number]
[2018-04-19] MEDS: Escitalopram Oxalate 10 mg Tablet PO SCH (09:20)
[2018-04-19] MEDS: Famotidine 20 MG TAB PO SCH ×2 (09:20→21:22)
[2018-04-19] MEDS: Saccharomyces boulardii 250 MG CAP PO SCH (09:20)
[2018-04-19] MEDS: Amlodipine 10 MG TAB PO SCH (09:20)
[2018-04-19] MEDS: Lovastatin 20 MG TAB PO SCH (09:21)
[2018-04-19] MEDS: cefTRIAXone\\ROCEPHIN 2 GM in Sodium Chloride 0.9% 100 ML IVPB SCH (09:21)
--- NOTE | 2018-04-19 09:48 | PDOC.PN ---
- Subjective Encounter Start Date: 04/19/18 Encounter Start Time: 07:50 Patient seen and examined. No new complaints. No overnight events - Objective Resuscitation Status - Order Detail: 04/17/18 02:21 Resuscitation Status Routine Resuscitation Status: FULL: Full Resuscitation MAR Reviewed: Yes Vital Signs & Weight: Vital Signs (12 hours) Temp Pulse Resp BP BP Pulse Ox 04/19/18 09:20 66 148/76 H 04/19/18 07:13 97.9 F 66 18 148/76 H 97 04/19/18 04:00 98.2 F 65 18 131/73 96 04/19/18 00:00 98.0 F 69 18 143/74 H 97 Weight Weight 166 lb 3.2 oz I&O: 04/18/18 04/19/18 04/20/18 06:59 06:59 06:59 Intake Total 400 800 950 Balance 400 800 950 Result Diagrams: 04/19/18 07:31 04/19/18 07:31 Additional Labs: Accuchecks 04/19/18 04/18/18 04/18/18 06:28 20:19 16:05 POC Glucose 149 H 200 H 169 H 04/18/18 11:04 POC Glucose 229 H Phys Exam - Physical Examination Constitutional: NAD HEENT: PERRLA, moist MMs, sclera anicteric Neck: no JVD, supple Respiratory: no wheezing, no rales, no rhonchi Cardiovascular: RRR, no significant murmur, no rub Gastrointestinal: soft, non-tender, no distention, positive bowel sounds Musculoskeletal: no edema, pulses present 2nd toe cellulitis, ulcer Neurological: non-focal, normal sensation, moves all 4 limbs Lymphatic: no nodes Psychiatric: normal affect, A&O x 3 Skin: no rash, normal turgor Dx/Plan (1) Bacteremia due to methicillin susceptible Staphylococcus aureus (MSSA) Code(s): R78.81 - BACTEREMIA Status: Acute (2) Diabetic foot infection Code(s): E11.628 - TYPE 2 DIABETES MELLITUS WITH OTHER SKIN COMPLICATIONS; L08.9 - LOCAL INFECTION OF THE SKIN AND SUBCUTANEOUS TISSUE, UNSP Status: Acute (3) Osteomyelitis of toe of left foot Code(s): M86.9 - OSTEOMYELITIS, UNSPECIFIED Status: Acute (4) Sepsis Code(s): A41.9 - SEPSIS, UNSPECIFIED ORGANISM Status: Acute (5) Diabetes type 2, controlled Code(s): E11.9 - TYPE 2 DIABETES MELLITUS WITHOUT COMPLICATIONS Status: Chronic (6) Dyslipidemia Code(s): E78.5 - HYPERLIPIDEMIA, UNSPECIFIED Status: Chronic (7) Hypertension Code(s): I10 - ESSENTIAL (PRIMARY) HYPERTENSION Status: Chronic - Plan cont current plan of care, continue antibiotics * medication reviewed as below * symptomatic treatment * today plan for surgery, toe amputation * change antibiotic to rocephin. Review of Systems - Review of Systems ENT: negative: Ear Pain, Ear Discharge, Nose Pain, Nose Discharge, Nose Congestion, Mouth Pain, Mouth Swelling, Throat Pain, Throat Swelling, Other Respiratory: negative: Cough, Dry, Shortness of Breath, Hemoptysis, SOB with Excertion, Pleuritic Pain, Sputum, Wheezing Cardiovascular: negative: chest pain, palpitations, orthopnea, paroxysmal nocturnal dyspnea, edema, light headedness, other Gastrointestinal: negative: Nausea, Vomiting, Abdominal Pain, Diarrhea, Constipation, Melena, Hematochezia, Other Genitourinary: negative: Dysuria, Frequency, Incontinence, Hematuria, Retention , Other Musculoskeletal: negative: Neck Pain, Shoulder Pain, Arm Pain, Back Pain, Hand Pain, Leg Pain, Foot Pain, Other Skin: negative: Rash, Lesions, Levy, Bruising, Other - Medications/Allergies Allergies/Adverse Reactions: Allergies Allergy/AdvReac Type Severity Reaction Status Date / Time No Known Allergies Allergy Unverified 06/10/17 15:38 Medications: Current Medications Acetaminophen (Tylenol) 650 mg PO Q4H PRN PRN Reason: Headache/Fever/Mild Pain (1-3) Hydrocodone Bitart/Acetaminophen ([place] 5/325) 1 tab PO Q4H PRN PRN Reason: Moderate Pain (4-6) Last Admin: 04/19/18 01:43 Dose: 1 tab Amlodipine Besylate (Norvasc) 10 mg PO DAILY [facility] Last Admin: 04/19/18 09:20 Dose: 10 mg Artificial Tears (Tears Naturale) 2 drop EA EYE PRN PRN PRN Reason: Dry Eyes Aspirin (Ecotrin) 81 mg PO DAILY [facility] Last Admin: 04/18/18 09:26 Dose: 81 mg Bisacodyl (Dulcolax) 10 mg PO DAILYPRN PRN PRN Reason: Constipation Calcium Carbonate (Tums) 1,000 mg PO Q4H PRN PRN Reason: Heartburn or Indigestion Dextrose/Water (Dextrose 50%) 25 gm SLOW IVP PRN PRN PRN Reason: Hypoglycemia Enoxaparin Sodium (Lovenox) 40 mg SC 0900 [facility] Last Admin: 04/18/18 09:25 Dose: 40 mg Escitalopram Oxalate (Lexapro) 10 mg PO DAILY [facility] Last Admin: 04/19/18 09:20 Dose: 10 mg Famotidine (Pepcid) 20 mg PO BID [facility] Last Admin: 04/19/18 09:20 Dose: 20 mg Glucagon (Glucagon) 1 mg IM PRN PRN PRN Reason: Hypoglycemia Guaifenesin (Robitussin Sf) 200 mg PO Q4H PRN PRN Reason: Cough Hydralazine HCl (Apresoline) 10 mg SLOW IVP Q4H PRN PRN Reason: SBP > 180 and HR < 70 Dextrose/Water (D5w) 1,000 mls @ 0 mls/hr IV .Q0M PRN PRN Reason: Hypoglycemia Insulin Glargine 20 units/ (Miscellaneous Medication) 0.2 mls @ 0 mls/hr SC DAILY [facility] Last Admin: 04/18/18 09:26 Dose: 0.2 mls Ceftriaxone Sodium 2 gm/ (Sodium Chloride) 100 mls @ 200 mls/hr IVPB Q24HR [facility] Last Admin: 04/19/18 09:21 Dose: 100 mls Vancomycin HCl 1 gm/ Device 200 mls @ 200 mls/hr IVPB ONCALL-OR JAZZY Vancomycin HCl 1 gm/ Device 200 mls @ 200 mls/hr IVPB Q12HR [facility] Insulin Human Lispro (Humalog) 0 units SC .MILD SLIDING SCALE PRN PRN Reason: Mild Correctional Scale Last Admin: 04/18/18 12:48 Dose: 3 unit Insulin Human Lispro (Humalog) 0 units SC .BEDTIME SLIDING SC PRN PRN Reason: Bedtime Correctional Scale Loperamide HCl (Imodium) 2 mg PO PRN PRN PRN Reason: Diarrhea/Loose Stools Loratadine (Claritin) 10 mg PO DAILYPRN PRN PRN Reason: Sinus Symptoms Lovastatin (Mevacor) 20 mg PO DAILY [facility] Last Admin: 04/19/18 09:21 Dose: 20 mg Mineral Oil/White Petrolatum (Eucerin Cream) 0 gm TOP BIDPRN PRN PRN Reason: Dry Skin Morphine Sulfate (Morphine) 2 mg SLOW IVP Q4H PRN PRN Reason: Pain Last Admin: 04/18/18 22:24 Dose: 2 mg Ondansetron HCl (Zofran Odt) 4 mg PO Q6H PRN PRN Reason: Nausea/Vomiting Ondansetron HCl (Zofran) 4 mg IVP Q6H PRN PRN Reason: Nausea/Vomiting Saccharomyces Boulardii (Florastor) 250 mg PO DAILY [facility] Last Admin: 04/19/18 09:20 Dose: 250 mg Senna/Docusate Sodium (Senokot S) 2 tab PO BID PRN PRN Reason: Constipation Sodium Chloride (Flush - Normal Saline) 10 ml IVF PRN PRN PRN Reason: Saline Flush Sodium Chloride (Flush - Normal Saline) 10 ml IVF Q12HR [facility] Last Admin: 04/18/18 20:19 Dose: 10 ml Sodium Chloride ([place] Nasal [place] 0.65%) 0 ml EA NARE QIDPRN PRN PRN Reason: Nasal Congestion Throat Lozenges (Cepastat Lozenges) 1 sarah PO Q2H PRN PRN Reason: Sore Throat Zolpidem Tartrate (Ambien) 5 mg PO HSPRN PRN PRN Reason: Insomnia Last Admin: 04/18/18 20:18 Dose: 5 mg
[2018-04-19] MEDS: Vancomycin HCl 1 GM in Premix Bag 1 BAG IVPB SCH ×2 (11:28→21:20)
[2018-04-19] MEDS: Enoxaparin Sodium 40 MG/0.4 ML SYRINGE SC SCH (11:29)
[2018-04-19] MEDS: Aspirin 81 mg Enteric Coated Tablet PO SCH (11:29)
[2018-04-19] MEDS ORDERED: Propofol 500 MG/50 ML VIAL ONE (11:53)
[2018-04-19] MEDS ORDERED: Fentanyl 100 MCG/2 ML VIAL ONE (11:53)
[2018-04-19] MEDS ORDERED: Acetaminophen 500 MG TAB PO PRN (12:46)
[2018-04-19] MEDS ORDERED: Ibuprofen 600 MG TAB PO PRN (12:46)
[2018-04-19] MEDS ORDERED: traMADol HCl 50 MG TAB PO PRN ×2 (12:46)
[2018-04-19] MEDS ORDERED: Promethazine HCl 25 MG/ML VIAL IM PRN (12:56)
[2018-04-19] MEDS ORDERED: Promethazine HCl 25 MG/ML VIAL SLOW IVP PRN (12:56)
[2018-04-19] MEDS ORDERED: Ondansetron HCl/PF 4 MG/2 ML Vial IVP PRN (12:56)
[2018-04-19 13:17] VITALS: BMI 26.0
--- NOTE | 2018-04-19 13:40 | OP ---
DATE OF PROCEDURE: 04/19/2018 PREOPERATIVE DIAGNOSES: Diabetic infection left second toe with good blood supply, palpable posterior tibial vessel on his foot and toes, osteomyelitis left second toe. POSTOPERATIVE DIAGNOSES: Diabetic infection left second toe with good blood supply, palpable posterior tibial vessel on his foot and toes, osteomyelitis left second toe. PROCEDURE PERFORMED: Amputation of left second toe through the proximal phalanx. ANESTHESIA: Intravenous sedation. DESCRIPTION OF PROCEDURE: The patient was taken to the operating room, where under regional anesthesia and sedation, his left lower extremity was prepared with Betadine and draped in routine fashion. Incision was made for fishmouth type incision and amputation of left second toe through the proximal phalanx were transecting the findings with a bone cutter, then proximally with rongeurs, irrigated the wound, debriding, excising connective tissue, washing the wound. Wound Care Team wiped, placed a wound VAC. Job ID: [id number]
[2018-04-19] MEDS ORDERED: PROPOFOL 200 MG/20 ML VIAL ONE (16:26)
[2018-04-19] MEDS: Insulin Glargine 20 UNITS in Pre-Filled Syringe 1 EACH SC SCH (16:38)
[2018-04-19] MEDS: HumaLOG 300 UNITS/3 ML VIAL SC PRN (16:40)
[2018-04-19] MEDS: Zolpidem Tartrate 5 MG TAB PO PRN (21:20)
[2018-04-19] MEDS: Morphine 4 MG/ML VIAL SLOW IVP PRN (22:24)
[2018-04-20] MEDS: HumaLOG 300 UNITS/3 ML VIAL SC PRN ×2 (05:51→12:21)
[2018-04-20] MEDS: Saccharomyces boulardii 250 MG CAP PO SCH (08:00)
[2018-04-20] MEDS: cefTRIAXone\\ROCEPHIN 2 GM in Sodium Chloride 0.9% 100 ML IVPB SCH (08:00)
[2018-04-20] MEDS: Lovastatin 20 MG TAB PO SCH (08:01)
[2018-04-20] MEDS: Aspirin 81 mg Enteric Coated Tablet PO SCH (08:01)
[2018-04-20] MEDS: Enoxaparin Sodium 40 MG/0.4 ML SYRINGE SC SCH (08:01)
[2018-04-20] MEDS: Escitalopram Oxalate 10 mg Tablet PO SCH (08:01)
[2018-04-20] MEDS: Famotidine 20 MG TAB PO SCH ×2 (08:01→21:09)
[2018-04-20] MEDS: Insulin Glargine 20 UNITS in Pre-Filled Syringe 1 EACH SC SCH (08:01)
[2018-04-20] MEDS: Amlodipine 10 MG TAB PO SCH (08:01)
[2018-04-20] MEDS: Vancomycin HCl 1 GM in Premix Bag 1 BAG IVPB SCH (08:02)
--- NOTE | 2018-04-20 10:07 | PRG ---
DATE OF SERVICE: 04/20/2018 SUBJECTIVE: Mr. Francis is doing well after amputation of his left second toe due to osteomyelitis. Blood cultures remain negative except for one Staphylococcus aureus on 04/16/2018, 04/07. On 04/18/2018, blood cultures negative. Bacterial culture yesterday intraoperatively submitted from the toe. Gram positive cocci. The patient reports no pain. Wound VAC is in place. PLAN: At this time is to review his wound tomorrow with wound VAC change. Hopefully, he can be discharged home on oral antibiotics for 10 days as soon as wound VAC treatment is arranged. Job ID: [id number]
--- NOTE | 2018-04-20 10:26 | PDOC.PN ---
- Subjective Encounter Start Date: 04/20/18 Encounter Start Time: 07:40 Patient seen and examined. No new complaints. No overnight events - Objective Resuscitation Status - Order Detail: 04/17/18 02:21 Resuscitation Status Routine Resuscitation Status: FULL: Full Resuscitation MAR Reviewed: Yes Vital Signs & Weight: Vital Signs (12 hours) Temp Pulse Resp BP BP Pulse Ox 04/20/18 08:01 75 135/76 04/20/18 08:00 98.4 F 76 18 135/76 97 04/20/18 04:00 98.0 F 75 16 150/77 H 97 04/20/18 00:00 97.8 F 79 16 158/78 H 96 Weight Admit Weight 166 lb 3.2 oz Weight 166 lb 3.2 oz I&O: 04/19/18 04/20/18 04/21/18 06:59 06:59 06:59 Intake Total 800 2800 1050 Balance 800 2800 1050 Result Diagrams: 04/19/18 07:31 04/19/18 07:31 Additional Labs: Accuchecks 04/19/18 04/19/18 20:22 15:49 POC Glucose 168 H 209 H Phys Exam - Physical Examination Constitutional: NAD HEENT: PERRLA, moist MMs, sclera anicteric Neck: no JVD, supple Respiratory: no wheezing, no rales, no rhonchi Cardiovascular: RRR, no significant murmur, no rub Gastrointestinal: soft, non-tender, no distention Musculoskeletal: no edema, pulses present wound vac at surgical site Neurological: non-focal, normal sensation Lymphatic: no nodes Psychiatric: normal affect, A&O x 3 Skin: no rash, normal turgor Dx/Plan (1) Bacteremia due to methicillin susceptible Staphylococcus aureus (MSSA) Code(s): R78.81 - BACTEREMIA Status: Acute (2) Diabetic foot infection Code(s): E11.628 - TYPE 2 DIABETES MELLITUS WITH OTHER SKIN COMPLICATIONS; L08.9 - LOCAL INFECTION OF THE SKIN AND SUBCUTANEOUS TISSUE, UNSP Status: Acute (3) Osteomyelitis of toe of left foot Code(s): M86.9 - OSTEOMYELITIS, UNSPECIFIED Status: Acute (4) Sepsis Code(s): A41.9 - SEPSIS, UNSPECIFIED ORGANISM Status: Acute (5) Diabetes type 2, controlled Code(s): E11.9 - TYPE 2 DIABETES MELLITUS WITHOUT COMPLICATIONS Status: Chronic (6) Dyslipidemia Code(s): E78.5 - HYPERLIPIDEMIA, UNSPECIFIED Status: Chronic (7) Hypertension Code(s): I10 - ESSENTIAL (PRIMARY) HYPERTENSION Status: Chronic - Plan cont current plan of care, continue antibiotics * medication reviewed as below * symptomatic treatment * wound care * continue rocephin. * dc vancomycin Review of Systems - Review of Systems ENT: negative: Ear Pain, Ear Discharge, Nose Pain, Nose Discharge, Nose Congestion, Mouth Pain, Mouth Swelling, Throat Pain, Throat Swelling, Other Respiratory: negative: Cough, Dry, Shortness of Breath, Hemoptysis, SOB with Excertion, Pleuritic Pain, Sputum, Wheezing Cardiovascular: negative: chest pain, palpitations, orthopnea, paroxysmal nocturnal dyspnea, edema, light headedness, other Gastrointestinal: negative: Nausea, Vomiting, Abdominal Pain, Diarrhea, Constipation, Melena, Hematochezia, Other Genitourinary: negative: Dysuria, Frequency, Incontinence, Hematuria, Retention , Other Musculoskeletal: negative: Neck Pain, Shoulder Pain, Arm Pain, Back Pain, Hand Pain, Leg Pain, Foot Pain, Other Skin: negative: Rash, Lesions, Levy, Bruising, Other - Medications/Allergies Allergies/Adverse Reactions: Allergies Allergy/AdvReac Type Severity Reaction Status Date / Time No Known Allergies Allergy Unverified 06/10/17 15:38 Medications: Current Medications Acetaminophen (Tylenol) 650 mg PO Q4H PRN PRN Reason: Headache/Fever/Mild Pain (1-3) Acetaminophen (Tylenol) 1,000 mg PO Q6H PRN PRN Reason: Moderate to Severe Pain (6-10) Hydrocodone Bitart/Acetaminophen ([place] 5/325) 1 tab PO Q4H PRN PRN Reason: Moderate Pain (4-6) Last Admin: 04/19/18 21:20 Dose: 1 tab Amlodipine Besylate (Norvasc) 10 mg PO DAILY [facility] Last Admin: 04/20/18 08:01 Dose: 10 mg Artificial Tears (Tears Naturale) 2 drop EA EYE PRN PRN PRN Reason: Dry Eyes Aspirin (Ecotrin) 81 mg PO DAILY [facility] Last Admin: 04/20/18 08:01 Dose: 81 mg Bisacodyl (Dulcolax) 10 mg PO DAILYPRN PRN PRN Reason: Constipation Calcium Carbonate (Tums) 1,000 mg PO Q4H PRN PRN Reason: Heartburn or Indigestion Dextrose/Water (Dextrose 50%) 25 gm SLOW IVP PRN PRN PRN Reason: Hypoglycemia Enoxaparin Sodium (Lovenox) 40 mg SC 0900 [facility] Last Admin: 04/20/18 08:01 Dose: 40 mg Escitalopram Oxalate (Lexapro) 10 mg PO DAILY [facility] Last Admin: 04/20/18 08:01 Dose: 10 mg Famotidine (Pepcid) 20 mg PO BID [facility] Last Admin: 04/20/18 08:01 Dose: 20 mg Glucagon (Glucagon) 1 mg IM PRN PRN PRN Reason: Hypoglycemia Guaifenesin (Robitussin Sf) 200 mg PO Q4H PRN PRN Reason: Cough Hydralazine HCl (Apresoline) 10 mg SLOW IVP Q4H PRN PRN Reason: SBP > 180 and HR < 70 Dextrose/Water (D5w) 1,000 mls @ 0 mls/hr IV .Q0M PRN PRN Reason: Hypoglycemia Insulin Glargine 20 units/ (Miscellaneous Medication) 0.2 mls @ 0 mls/hr SC DAILY [facility] Last Admin: 04/20/18 08:01 Dose: 0.2 mls Ceftriaxone Sodium 2 gm/ (Sodium Chloride) 100 mls @ 200 mls/hr IVPB Q24HR [facility] Last Admin: 04/20/18 08:00 Dose: 100 mls Vancomycin HCl 1 gm/ Device 200 mls @ 200 mls/hr IVPB ONCALL-OR [facility] Last Admin: 04/19/18 10:28 Dose: 200 mls Vancomycin HCl 1 gm/ Device 200 mls @ 200 mls/hr IVPB Q12HR [facility] Last Admin: 04/20/18 08:02 Dose: 200 mls Ibuprofen (Motrin) 600 mg PO Q6H PRN PRN Reason: Pain Insulin Human Lispro (Humalog) 0 units SC .MILD SLIDING SCALE PRN PRN Reason: Mild Correctional Scale Last Admin: 04/20/18 05:51 Dose: 2 unit Insulin Human Lispro (Humalog) 0 units SC .BEDTIME SLIDING SC PRN PRN Reason: Bedtime Correctional Scale Loperamide HCl (Imodium) 2 mg PO PRN PRN PRN Reason: Diarrhea/Loose Stools Loratadine (Claritin) 10 mg PO DAILYPRN PRN PRN Reason: Sinus Symptoms Lovastatin (Mevacor) 20 mg PO DAILY [facility] Last Admin: 04/20/18 08:01 Dose: 20 mg Mineral Oil/White Petrolatum (Eucerin Cream) 0 gm TOP BIDPRN PRN PRN Reason: Dry Skin Morphine Sulfate (Morphine) 2 mg SLOW IVP Q4H PRN PRN Reason: Pain Last Admin: 04/19/18 22:24 Dose: 2 mg Ondansetron HCl (Zofran Odt) 4 mg PO Q6H PRN PRN Reason: Nausea/Vomiting Ondansetron HCl (Zofran) 4 mg IVP Q6H PRN PRN Reason: Nausea/Vomiting Saccharomyces Boulardii (Florastor) 250 mg PO DAILY [facility] Last Admin: 04/20/18 08:00 Dose: 250 mg Senna/Docusate Sodium (Senokot S) 2 tab PO BID PRN PRN Reason: Constipation Sodium Chloride (Flush - Normal Saline) 10 ml IVF PRN PRN PRN Reason: Saline Flush Sodium Chloride (Flush - Normal Saline) 10 ml IVF Q12HR [facility] Last Admin: 04/20/18 08:02 Dose: 10 ml Sodium Chloride ([place] Nasal [place] 0.65%) 0 ml EA NARE QIDPRN PRN PRN Reason: Nasal Congestion Throat Lozenges (Cepastat Lozenges) 1 sarah PO Q2H PRN PRN Reason: Sore Throat Tramadol HCl (Ultram) 50 mg PO Q6H PRN PRN Reason: Pain Tramadol HCl (Ultram) 100 mg PO Q6H PRN PRN Reason: Pain Zolpidem Tartrate (Ambien) 5 mg PO HSPRN PRN PRN Reason: Insomnia Last Admin: 04/19/18 21:20 Dose: 5 mg
[2018-04-20] MEDS: Morphine 4 MG/ML VIAL SLOW IVP PRN (21:17)
[2018-04-20] MEDS: Zolpidem Tartrate 5 MG TAB PO PRN (21:17)
--- NOTE | 2018-04-20 23:47 | CON ---
DATE OF CONSULTATION: 04/20/2018 REASON FOR CONSULTATION: Osteomyelitis, left foot. HISTORY OF PRESENT ILLNESS: A 62-year-old patient with a history of type 2 diabetes, prior CVA, hypertension with chronic osteomyelitis, left second toe, associated with fever. The onset of illness was about 3 days before admission, although he must have had this earlier than and what he realized due to neuropathy. He was admitted and had an amputation and currently is postoperatively #2 postop day. No headaches, visual symptoms, sore throat, odynophagia, or dysphagia. No cough, sputum production, or chest pain. No abdominal pain or diarrhea. No other joint symptoms. MEDICAL HISTORY: CVA in 2016, type 2 diabetes, hyperlipidemia, hypertension. FAMILY HISTORY: Noncontributory. SOCIAL: Current smoker. Does not drink. 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 ALLERGIES: NONE. CURRENT MEDICATIONS: 1. [place]. 2. Norvasc. 3. Ecotrin. 4. Ceftriaxone. 5. He had been on vancomycin and has been discontinued. PHYSICAL EXAMINATION: VITAL SIGNS: Essentially normal. Mild elevation of systolic blood pressure. SKIN: Showed the changes in the 2nd toe, which has been amputated now. He has got a lot of onychodystrophy. No other lesions. Peripheral IV access. He is urinating in the toilet. No lymphadenopathy. HEENT: Not remarkable. NECK: Supple. LUNGS: Symmetric clear breath sounds. HEART: S1, S2. Regular rate. No S3 or S4. ABDOMEN: Soft, not distended or tender. No ascites. No bladder distention. MUSCULOSKELETAL: No other joint inflammatory process. Pulses 1+ in dorsalis pedis, popliteals 1+. NEURO: Nonfocal including cognitive function. LABORATORY DATA: White cell count is down 12908 to 5200, hemoglobin 13, platelets 254, differential 54 and 27. Chemistries not particularly remarkable. Liver profile including. CRP 5.3. The pathology showed acute inflammation extending to the soft tissue resection margin. Microbiology with methicillin-sensitive Staph aureus. The susceptibility to every antibiotic tested except for amoxicillin and piperacillin. ASSESSMENT: Type 2 diabetes with osteomyelitis left second toe status post amputation, compromised margins. The vascular supply is adequate. Recommend switching to oral Cipro plus Keflex for 3 to 4 weeks. Follow up labs and clinical course to ensure proper healing. It should heal well as long as we continue the oral antimicrobial therapy for a longer period of time in view of the compromised margin. Job ID: [id number]
[2018-04-21] MEDS: Enoxaparin Sodium 40 MG/0.4 ML SYRINGE SC SCH (09:25)
[2018-04-21] MEDS: cefTRIAXone\\ROCEPHIN 2 GM in Sodium Chloride 0.9% 100 ML IVPB SCH (09:25)
[2018-04-21] MEDS: Aspirin 81 mg Enteric Coated Tablet PO SCH (09:26)
[2018-04-21] MEDS: Insulin Glargine 20 UNITS in Pre-Filled Syringe 1 EACH SC SCH (09:26)
[2018-04-21] MEDS: Lovastatin 20 MG TAB PO SCH (09:26)
[2018-04-21] MEDS: Famotidine 20 MG TAB PO SCH (09:26)
[2018-04-21] MEDS: Escitalopram Oxalate 10 mg Tablet PO SCH (09:26)
[2018-04-21] MEDS: Saccharomyces boulardii 250 MG CAP PO SCH (09:26)
[2018-04-21] MEDS: Amlodipine 10 MG TAB PO SCH (09:26)
[2018-04-21] MEDS: Morphine 4 MG/ML VIAL SLOW IVP PRN (10:10)
--- NOTE | 2018-04-21 10:45 | DIS ---
DATE OF ADMISSION: 04/17/2018 DATE OF DISCHARGE: 04/21/2018 PRIMARY CARE PHYSICIAN: Dr. Gracie Verde. DISCHARGE DISPOSITION: Home with home health and outpatient wound care. PRIMARY DISCHARGE DIAGNOSES: 1. Methicillin-susceptible Staphylococcus aureus bacteremia. 2. Diabetes foot infection. 3. Osteomyelitis of toe over left foot. 4. Sepsis, resolved. SECONDARY DISCHARGE DIAGNOSES: 1. Diabetes type 2. 2. Hypertension. 3. Dyslipidemia. PRIMARY PROCEDURE/OPERATION: Dr. Calix did amputation of second toe. RADIOLOGICAL INVESTIGATION: Foot x-ray on admission showed mild degenerative changes, soft tissue swelling over forefoot. Lower extremity MRI showed osteomyelitis of the middle and distal phalanges of the second toe, septic arthritis of distal interphalangeal joint. SIGNIFICANT LABORATORY DATA: WBC 5.2, hemoglobin 13.0, and platelet 254. ESR 50. D-dimer 0.43. Sodium 136, potassium 4.1, BUN 9, creatinine 0.97, calcium 9.1. CRP 5.30. Urinalysis normal. Blood culture positive for Staph aureus. Wound culture also positive for Staph aureus. Urine culture negative. DISCHARGE MEDICATIONS: New medications; 1. Tylenol No. 3 one or two tablets p.o. q.6 hourly p.r.n. for pain. 2. Cipro 500 mg p.o. b.i.d. for one month. 3. Keflex 500 mg p.o. t.i.d. for one month. 4. Florastor 250 mg p.o. daily for one month. 5. Amlodipine 10 mg daily. 6. Aspirin 81 mg daily. 7. Lexapro 10 mg daily. 8. Lantus 20 units subcu daily. 9. Lovastatin 20 mg p.o. daily. 10. Metformin 1000 mg p.o. daily. CONTRAINDICATION: None. CODE STATUS: Full code. INPATIENT AUTOMOTIVE ALIGNMENT SPECIALIST: Dr. Calix was consulted, who did amputation of the toe. Dr. Adams was consulted, who did not give final antibiotic recommendation. HOSPITAL COURSE: A 62-year-old male with above-mentioned medical problem, who was admitted by Dr. Gracia. Please see his H and P for further details. The patient was admitted for diabetic foot infection with cellulitis and osteomyelitis of second toe on the left side. MRI also confirmed osteomyelitis. Foot x-ray was unremarkable. The patient also had distal interphalangeal joint septic arthritis. Dr. Calix did amputation of the second toe and after that wound VAC was applied as the patient did not have any appropriate margin, that is why Dr. Adams recommended prolonged oral antibiotic therapy with Cipro and Keflex for 3 to 4 weeks. The patient has approval for outpatient wound vacuum as well as outpatient wound care is also arranged with help of onsite case manager. The patient is doing very well. The patient is seen and examined at bedside today. All review of systems reviewed with him and negative. PHYSICAL EXAMINATION: VITAL SIGNS: Currently, temperature 97.8, pulse 76, respiratory rate 18, saturation 98% on room air, blood pressure 161/80, and weight 166 pounds. GENERAL: The patient is currently alert and awake, no obvious acute distress. HEENT: Head; normocephalic and atraumatic. Eyes; pupils are round and reactive to light. Extraocular muscle intact. ENT, oropharynx within normal limits. Moist mucous membranes. No oral lesion. No pharyngeal erythema. No exudate. NECK: Supple. No JVD. No thyromegaly. No carotid bruit. LUNGS: Clear to auscultation without any rhonchi or rales. CARDIAC: S1 and S2 regular. No murmur. No gallop. No rub. ABDOMEN: Soft and benign. EXTREMITIES: No edema. Wound VAC in place. This patient is medically stable for discharge. All new medication prescription sent to his pharmacy. He will follow up with Dr. Calix as well as Dr. Adams and he will get wound care with home health. Job ID: [id number]
[2018-04-21] MEDS: HumaLOG 300 UNITS/3 ML VIAL SC PRN (12:06)
[2018-04-21 12:08] VITALS: BP 159/82; TEMP 98
--- NOTE | 2018-04-23 14:42 | PQF ---
[employer] Machine Operator Crystal Reports Winform ViewerGROSS, KRYSTAL BEATTY, AUGUSTINE HERNANDEZ MD [phone] [id number] CLINICAL DOCUMENTATION CLARIFICATION FORM: POST DISCHARGE Addendum to original discharge summary date: ____ Late entry note date: __ Please exercise your independent, professional judgment in responding to the clarification form. Clinical indicators are provided on the bottom of this form for your review Please check appropriate box(s): Conflicting documentation was noted in the Medical Record, please clarify if patient is being treated/monitored for: [ x] SEPSIS [ x ] MSSA BACTEREMIA [ ] Other diagnosis [ ] Unable to determine In addition, please specify: Present on Admission (POA): [x ] Yes [ ] No [ ] Unable to determine For continuity of documentation, please document condition throughout progress notes and discharge summary. Thank You. CLINICAL INDICATORS - SIGNS / SYMPTOMS/ LABS SEPSIS- D/S, PN 04/19, 04/20 MSSA BACTEREMIA- D/S, PN 04/19, 04/20 RISK FACTORS TOE CELLULITIS, OSTEOMYELITIS- H&P, D/S, PROGRESS NOTES DM2 WITH TOE ULCER- H&P, D/A, PROGRESS NOTES TREATMENT ON BROADSPECTRUM VANCOMYCIN AND ZOSYN- H&P (This form is maintained as a part of the permanent medical record) 2014 [employer]. All Rights Reserved [email or web address] [phone] [email or web address]
== END 2018-04-21 12:50 | disposition home health service (06) | DRG 854 ==
LOC: ERS 18:59 → OBSVTOIN 04-17 00:28 → SURG B 04-17 00:28 → SURG A 04-17 00:30
PROVIDERS: ADMIT Internal Medicine; ATTEND Internal Medicine
PROC: 0Y6S0Z1 Detachment at Left 2nd Toe, High, Open Approach (ICD-10-PCS; principal; 2018-04-19)
DX: A41.01 Sepsis due to Methicillin susceptible Staphylococcus aureus (principal); M86.8X7 Other osteomyelitis, ankle and foot; M00.9 Pyogenic arthritis, unspecified; E11.69 Type 2 diabetes mellitus with other specified complication; E11.621 Type 2 diabetes mellitus with foot ulcer; L97.529 Non-pressure chronic ulcer of other part of left foot with unspecified severity; I10 Essential (primary) hypertension; E78.5 Hyperlipidemia, unspecified; L03.032 Cellulitis of left toe; Z79.82 Long term (current) use of aspirin; Z79.4 Long term (current) use of insulin; Z86.73 Personal history of transient ischemic attack (TIA), and cerebral infarction without residual deficits
CPT/HCPCS: 36415; 36416; 80048; 80053; 80202; 81001; 85025; 85379; 85652; 86140; 87040; 87070; 87077; 87086; 87149; 87186; 87205; 88305; 88311; 96365; 96375; J0696; J1650; J2270; J2543; J2704; J3010; J3370; J7050

== ENCOUNTER 2018-04-23 13:34 | Outpatient (CLI) | payer SELFPAY ==
[~2018-04-23 13:34] MED LIST changes: -Gadobenate Dimeglumine 529 MG/1 ML (20ML VIAL) ONE; +Sodium Chloride 0.9% 15 ML NEB ONE
== END 2018-04-23 13:35 | disposition home or self-care (01) ==
LOC: WCC 13:34
PROVIDERS: ATTEND Family Medicine
DX: E11.621 Type 2 diabetes mellitus with foot ulcer (principal); L08.9 Local infection of the skin and subcutaneous tissue, unspecified; I10 Essential (primary) hypertension
CPT/HCPCS: 97602; A4218

== ENCOUNTER 2019-01-31 17:34 | Emergency (ER) | payer MEDICARE ==
[2019-01-31 18:02] LABS: #Basophils 0.1 thou/uL (0.0-0.2); #Eosinphils 0.3 thou/uL (0.0-0.7); #Lymphocytes 1.4 thou/uL (1.20-3.40); #Monocytes 0.8 thou/uL (0.11-0.59); #Neutrophils 8.7 thou/uL (1.40-6.50); %Basophils 0.5 % (0.0-1.0); %Eosinophils 2.6 % (0.0-10.0); %Lymphocytes 12.5 % (21.0-51.0); %Monocytes 6.7 % (0.0-10.0); %Neutrophils 77.7 % (42.0-75.0); Hemoglobin 13.9 g/dL (14.0-18.0); Mean Corpuscular HGB CONC 31.7 g/dL (32.0-36.0); Mean Corpuscular Volume 88.4 fL (78.0-98.0); Mean Platelet Volume 9.3 fL (7.4-10.4); Platelet Count 189 thou/uL (130-400); Red Blood Cell (RBC) Count 4.95 mill/uL (4.70-6.10); White Blood Cell (WBC) Count 11.2 thou/uL (4.8-10.8)
[2019-01-31 18:18] LABS: ALT (SGPT) 15 U/L (8-55); AST (SGOT) 17 U/L (5-34); Alkaline Phosphatase 89 U/L (40-110); Anion Gap 14 mmol/L (10-20); BUN (Urea Nitrogen) 14 mg/dL (8.4-25.7); Bilirubin, Total 0.7 mg/dL (0.2-1.2); CK (CPK) 52 U/L (30-200); Calc. Creatinine Clearance 0 mL/min (70-130); Calcium 9.6 mg/dL (7.8-10.44); Carbon Dioxide 25 mmol/L (23-31); Chloride 103 mmol/L (98-107); Estimated GFR-MDRD 74; Glucose 81 mg/dL (80-115); Potassium 3.9 mmol/L (3.5-5.1); Sodium 138 mmol/L (136-145)
== END 2019-01-31 18:39 | disposition home or self-care (01) ==
LOC: ERS 17:34
DX: E11.649 Type 2 diabetes mellitus with hypoglycemia without coma (principal); E78.5 Hyperlipidemia, unspecified; E78.00 Pure hypercholesterolemia, unspecified; I10 Essential (primary) hypertension; F17.220 Nicotine dependence, chewing tobacco, uncomplicated; Z79.4 Long term (current) use of insulin; Z86.73 Personal history of transient ischemic attack (TIA), and cerebral infarction without residual deficits
CPT/HCPCS: 36415; 36416; 80053; 82550; 84484; 85025; 93005

== ENCOUNTER 2019-03-26 10:49 | Inpatient (IN) | payer MEDICARE, SELFPAY ==
[2019-03-26 11:30] LABS: #Basophils 0.1 thou/uL (0.0-0.2); #Eosinphils 0.3 thou/uL (0.0-0.7); #Lymphocytes 1.2 thou/uL (1.20-3.40); #Monocytes 0.7 thou/uL (0.11-0.59); %Basophils 0.7 % (0.0-1.0); %Eosinophils 3.1 % (0.0-10.0); %Lymphocytes 14.4 % (21.0-51.0); %Monocytes 8.8 % (0.0-10.0); Hemoglobin 12.7 g/dL (14.0-18.0); Mean Corpuscular HGB CONC 34.5 g/dL (32.0-36.0); Mean Corpuscular Hemoglobin 29.7 pg (27.0-31.0); Mean Corpuscular Volume 86.1 fL (78.0-98.0); Mean Platelet Volume 8.5 fL (7.4-10.4); Platelet Count 192 thou/uL (130-400); RBC Distribution Width 13.8 % (11.5-14.5); Red Blood Cell (RBC) Count 4.27 mill/uL (4.70-6.10); White Blood Cell (WBC) Count 8.2 thou/uL (4.8-10.8)
--- NOTE | 2019-03-26 11:45 | RAD ---
EXAM: XR Foot Lt 3 View STANDARD PROVIDED CLINICAL HISTORY: Pain FINDINGS: Mildly distracted fracture involving the fourth digit distal phalanx. Postoperative absence of the fi rst and third digits as well as the majority of the second digit. Alignment appears anatomic. Joint spaces appear preserved. Vascular calcifications are seen. IMPRESSION: Fourth digit distal phalangeal fracture..
[2019-03-26 11:51] LABS: ALT (SGPT) 8 U/L (8-55); AST (SGOT) 9 U/L (5-34); Albumin 3.4 g/dL (3.4-4.8); Alkaline Phosphatase 87 U/L (40-110); Anion Gap 12 mmol/L (10-20); BUN (Urea Nitrogen) 15 mg/dL (8.4-25.7); Bilirubin, Total 0.5 mg/dL (0.2-1.2); Calc. Creatinine Clearance 0 mL/min (70-130); Carbon Dioxide 25 mmol/L (23-31); Chloride 100 mmol/L (98-107); Estimated GFR-MDRD 66; Globulin 3.1 g/dL (2.4-3.5); Glucose 351 mg/dL (80-115); Potassium 4.2 mmol/L (3.5-5.1); Protein, Total 6.5 g/dL (5.8-8.1); Sodium 133 mmol/L (136-145)
[2019-03-26] MEDS ORDERED: Piperacillin/Tazobactam 4.5 GM VIAL ONE (13:27)
[2019-03-26] MEDS ORDERED: Vancomycin HCl 1.75 GM in Sodium Chloride 0.9% 500 ML IVPB SCH (13:30)
--- NOTE | 2019-03-26 16:14 | HP ---
PRIMARY CARE PHYSICIAN: Dr. Eliazar Mcbride. REASON FOR ADMISSION: Diabetic toe infection. HISTORY OF PRESENT ILLNESS: A 63-year-old male, who has underlying history of coronary artery disease with history of CABG and ischemic cardiomyopathy, who presented to emergency room with complaint of left 5th toe ulceration. The patient denies any fever or chills. The patient has ulcer over left 4th toe over 2 weeks. The patient was following help desk supervisor and who advised him to go to emergency room for evaluation. The patient was not getting any antibiotic therapy. The patient reports that he had scab over tip of the toe and he removed and subsequently, that got infected. The patient also has history of toe amputation on the same foot. PAST MEDICAL HISTORY: History of ischemic CVA in March 2016, hypertension, diabetes type 2, dyslipidemia, ischemic cardiomyopathy, coronary artery disease with history of coronary artery bypass grafting. PAST SURGICAL HISTORY: Tracheostomy, CABG, multiple toe amputation. PAST PSYCHIATRIC HISTORY: Reviewed and negative. SOCIAL HISTORY: The patient lives at home. He drinks alcohol socially. He denies any smoking. He denies any other illicit drug abuse. FAMILY HISTORY: No family history of premature coronary artery disease, stroke, or cancer. ALLERGIES: NO KNOWN DRUG ALLERGY. EMERGENCY ROOM COURSE: The patient received vancomycin. CURRENT HOME MEDICATIONS: The patient is taking Lantus insulin. The patient did not bring his home medication, so not able to verify home medication. REVIEW OF SYSTEMS: CONSTITUTIONAL: Negative for weight loss or gain, ability to conduct usual activities. SKIN: Negative for rash, itching. EYES: Negative for double vision, pain. ENT/MOUTH: Negative for nose bleeding, neck stiffness, pain, tenderness. CARDIOVASCULAR: Negative for palpitations, dyspnea on exertion, orthopnea. RESPIRATORY: Negative for shortness of breath, wheezing, cough, hemoptysis, fever or night sweats. GASTROINTESTINAL: Negative for poor appetite, abdominal pain, heartburn, nausea, vomiting, constipation, or diarrhea. GENITOURINARY: Negative for urgency, frequency, dysuria, nocturia. MUSCULOSKELETAL: Negative for pain, swelling. NEUROLOGIC/PSYCHIATRIC: Negative for anxiety, depression. ALLERGY/IMMUNOLOGIC: Negative for skin rash, bleeding tendency. Please see my HPI for pertinent positives and negatives. All other review of systems reviewed and negative except as mentioned in HPI. PHYSICAL EXAMINATION: VITAL SIGNS: Currently, blood pressure 137/67, pulse 100, respiratory rate 20, temperature 97.6, saturation 98% on room air. Weight 83.4 kg. GENERAL: The patient is currently alert, awake, no acute distress. HEENT: Head; normocephalic, atraumatic. Eyes; pupils round, reactive to light. Extraocular muscle intact. ENT; oropharynx within normal limits. Moist mucous membranes. No oral lesion. No pharyngeal erythema. No exudate. NECK: Supple. No JVD. No meningeal signs of irritation. LUNGS: Clear to auscultation without any rhonchi or rales. CARDIAC: S1 and S2 regular without any murmur. No gallop. No rub. ABDOMEN: Soft. Bowel sounds present. Nontender. Nondistended. No organomegaly. No mass. EXTREMITIES: No edema. The patient's 3rd toe tip of the ulcer is gangrenous with surrounding cellulitis noted. NEUROLOGIC: Nonfocal examination. PSYCHIATRIC: Normal affect. SIGNIFICANT LABORATORY DATA: Foot x-ray reported as 4th digit distal pharyngeal fracture. CBC; WBC 8.2, hemoglobin 12.7, platelet 192. BMP; sodium 133, potassium 4.2, chloride 100, carbon dioxide 25, BUN 15, creatinine 1.12, glucose 351, calcium 9.0. LFT; AST 9, ALT 8, alkaline phosphatase 87, albumin 3.4. ASSESSMENT AND PLAN: 1. Diabetic toe infection, suspected for osteomyelitis. The patient will need MRI of the left foot to rule out toe osteomyelitis. In that case, the patient may need surgical evaluation. Currently, we will keep him on empiric antibiotic therapy with vancomycin and Zosyn. Based on renally adjusted dose, we will check ESR and CRP tomorrow. 2. Diabetes type 2, uncontrolled. We will resume insulin as per home dosage and continue with insulin as per sliding scale. Diabetic diet will be given. 3. Ischemic cardiomyopathy. We will restart patient's selected blood pressure medication and heart medication after verification. 4. Hypertension. We will resume the patient's blood pressure medication. 5. Dyslipidemia. We will resume the patient's statin therapy. 6. Anxiety and depression. We will resume the patient's home medication. Plan of care discussed with the patient in detail. Job ID: [id number]
[2019-03-26] MEDS ORDERED: Acetaminophen 325 MG TAB PO PRN ×2 (16:31→17:33)
[2019-03-26 17:08] VITALS: BMI 26.6
[2019-03-26] MEDS ORDERED: Sodium Chloride 0.65% Nasal 44 ML BOT EA NARE PRN (17:33)
[2019-03-26] MEDS ORDERED: hydrALAZINE 20 MG/ML VIAL SLOW IVP PRN (17:33)
[2019-03-26] MEDS ORDERED: Ondansetron PF 4 MG/2 ML Vial IVP PRN (17:33)
[2019-03-26] MEDS ORDERED: Cepastat Lozenges 1 LOZ PO PRN (17:33)
[2019-03-26] MEDS ORDERED: Calcium Carbonate 500 MG ChewTAB PO PRN (17:33)
[2019-03-26] MEDS ORDERED: Dextrose 50% Abboject 50 ML SYRINGE SLOW IVP PRN (17:33)
[2019-03-26] MEDS ORDERED: Diabetic Tussin 200 MG/10 ML UDCUP PO PRN (17:33)
[2019-03-26] MEDS ORDERED: Loperamide HCl 2 MG CAP PO PRN (17:33)
[2019-03-26] MEDS ORDERED: Senokot S 8.6-50 MG TAB PO PRN (17:33)
[2019-03-26] MEDS ORDERED: Dextrose 5% in Water 1,000 ML IV PRN (17:33)
[2019-03-26] MEDS ORDERED: Bisacodyl 10 MG SUPP PR PRN (17:33)
[2019-03-26] MEDS ORDERED: Zolpidem Tartrate 5 MG TAB PO PRN (17:33)
[2019-03-26] MEDS ORDERED: Ondansetron ODT 4 MG TAB PO PRN (17:33)
[2019-03-26] MEDS ORDERED: Loratadine 10 MG TAB PO PRN (17:33)
[2019-03-26] MEDS ORDERED: Piperacillin/Tazobactam 3.375 GM in Sodium Chloride 0.9% 100 ML IVPB SCH ×2 (18:00→20:00)
[2019-03-26] MEDS: Famotidine 20 MG TAB PO SCH (20:45)
[2019-03-26] MEDS: Piperacillin/Tazobactam 3.375 GM in Sodium Chloride 0.9% 100 ML IVPB SCH (20:45)
[2019-03-26] MEDS: Zolpidem Tartrate 5 MG TAB PO PRN (21:12)
[2019-03-27] MEDS: Piperacillin/Tazobactam 3.375 GM in Sodium Chloride 0.9% 100 ML IVPB SCH ×4 (01:58→20:01)
[2019-03-27] MEDS ORDERED: Vancomycin HCl 1.75 GM in Sodium Chloride 0.9% 500 ML IVPB SCH (03:00)
[2019-03-27] MEDS: Vancomycin HCl 1.75 GM in Sodium Chloride 0.9% 500 ML IVPB SCH ×2 (03:07→15:15)
[2019-03-27 06:31] LABS: #Eosinphils 0.3 thou/uL (0.0-0.7); #Lymphocytes 1.3 thou/uL (1.20-3.40); #Monocytes 0.7 thou/uL (0.11-0.59); #Neutrophils 3.3 thou/uL (1.40-6.50); %Basophils 0.5 % (0.0-1.0); %Eosinophils 5.7 % (0.0-10.0); %Lymphocytes 23.1 % (21.0-51.0); %Monocytes 12.5 % (0.0-10.0); %Neutrophils 58.3 % (42.0-75.0); Hemoglobin 12.9 g/dL (14.0-18.0); Mean Corpuscular HGB CONC 34.2 g/dL (32.0-36.0); Mean Corpuscular Hemoglobin 29.7 pg (27.0-31.0); Mean Corpuscular Volume 86.8 fL (78.0-98.0); Mean Platelet Volume 8.7 fL (7.4-10.4); Platelet Count 190 thou/uL (130-400); RBC Distribution Width 13.9 % (11.5-14.5); Red Blood Cell (RBC) Count 4.34 mill/uL (4.70-6.10); White Blood Cell (WBC) Count 5.7 thou/uL (4.8-10.8)
[2019-03-27 06:47] LABS: Anion Gap 14 mmol/L (10-20); BUN (Urea Nitrogen) 12 mg/dL (8.4-25.7); Calc. Creatinine Clearance 86 mL/min (70-130); Carbon Dioxide 24 mmol/L (23-31); Chloride 103 mmol/L (98-107); Estimated GFR-MDRD 82; Glucose 239 mg/dL (80-115); Potassium 4.2 mmol/L (3.5-5.1); Sodium 137 mmol/L (136-145)
[2019-03-27] MEDS: Famotidine 20 MG TAB PO SCH ×2 (08:17→20:03)
[2019-03-27] MEDS: Enoxaparin Sodium 40 MG/0.4 ML SYRINGE SC SCH (08:17)
[2019-03-27] MEDS: HYDROcodone/Acetaminophen 5/325 mg Tablet PO PRN ×2 (08:24→20:01)
--- NOTE | 2019-03-27 10:30 | PDOC.HOSPP ---
- Subjective Encounter Date: 03/27/19 Encounter Time: 08:20 Subjective: Patient seen and examined. No new complaints. No overnight events - Objective Vital Signs & Weight: Vital Signs (12 hours) Temp Pulse Resp BP BP Pulse Ox 03/27/19 08:00 96 03/27/19 07:41 97.9 F 86 16 154/76 H 96 03/27/19 00:00 98.8 F 85 16 143/79 H 96 Weight Weight 170 lb Result Diagrams: 03/27/19 05:52 03/27/19 05:52 Additional Labs: Accuchecks 03/27/19 03/26/19 05:17 19:23 POC Glucose 216 H 313 H Hospitalist ROS - Review of Systems ENT: denies: ear pain, ear discharge, nose pain, nose discharge, nose congestion , mouth pain, mouth swelling, throat pain, throat swelling, other Respiratory: denies: cough, dry, shortness of breath, hemoptysis, SOB with excertion, pleuritic pain, sputum, wheezing, other Cardiovascular: denies: chest pain, palpitations, orthopnea, paroxysmal noc. dyspnea, edema, light headedness, other Gastrointestinal: denies: nausea, vomiting, abdominal pain, diarrhea, constipation, melena, hematochezia, other Genitourinary: denies: dysuria, frequency, incontinence, hematuria, retention, other Musculoskeletal: denies: neck pain, shoulder pain, arm pain, back pain, hand pain, leg pain, foot pain, other - Medication Medications: Active Medications Generic Name Dose Route Start Last Admin Trade Name Freq PRN Reason Stop Dose Admin Hydrocodone Bitart/Acetaminophen 1 tab 03/26/19 17:33 03/27/19 08:24 [place] 5/325 PO 1 tab Q4H PRN Administration Moderate Pain (4-6) Enoxaparin Sodium 40 mg 03/27/19 09:00 03/27/19 08:17 Lovenox SC 40 mg 0900 JAZZY Administration Famotidine 20 mg 03/26/19 21:00 03/27/19 08:17 Pepcid PO 20 mg BID JAZZY Administration Piperacillin Sod/Tazobactam 100 mls @ 200 mls/hr 03/26/19 20:00 03/27/19 08: 17 Sod 3.375 gm/ Sodium Chloride IVPB 100 mls 0200,0800,1400,2000 JAZZY Administration Vancomycin HCl 1.75 gm/ Sodium 500 mls @ 250 mls/hr 03/27/19 03:00 03/27/19 03:07 Chloride IVPB 500 mls 0300,1500 JAZZY Administration Zolpidem Tartrate 5 mg 03/26/19 17:33 03/26/19 21:12 Ambien PO 5 mg HSPRN PRN Administration Insomnia - Exam General Appearance: NAD, awake alert Eye: PERRL, anicteric sclera ENT: normocephalic atraumatic, no oropharyngeal lesions Neck: supple, symmetric, no JVD Heart: RRR, no murmur, no gallops Respiratory: CTAB, no wheezes, no rales Gastrointestinal: soft, non-tender, non-distended, normal bowel sounds Extremities: no cyanosis, no clubbing Extremities - other findings: left 4th toe diabetic infection Skin: normal turgor, no lesions Neurological: no focal deficits Musculoskeletal: normal tone, normal strength Psychiatric: normal affect, normal behavior Hosp A/P (1) Diabetic foot infection Code(s): E11.628 - TYPE 2 DIABETES MELLITUS WITH OTHER SKIN COMPLICATIONS; L08.9 - LOCAL INFECTION OF THE SKIN AND SUBCUTANEOUS TISSUE, UNSP Status: Acute (2) Osteomyelitis of toe of left foot Code(s): M86.9 - OSTEOMYELITIS, UNSPECIFIED Status: Suspected (3) CAD (coronary artery disease) Code(s): I25.10 - ATHSCL HEART DISEASE OF [place] CORONARY ARTERY W/O ANG PCTRS Status: Chronic (4) Ischemic cardiomyopathy Code(s): I25.5 - ISCHEMIC CARDIOMYOPATHY Status: Chronic (5) Diabetes type 2, controlled Code(s): E11.9 - TYPE 2 DIABETES MELLITUS WITHOUT COMPLICATIONS Status: Chronic (6) Dyslipidemia Code(s): E78.5 - HYPERLIPIDEMIA, UNSPECIFIED Status: Chronic (7) Hypertension Code(s): I10 - ESSENTIAL (PRIMARY) HYPERTENSION Status: Chronic - Plan old records reviewed/req, continue antibiotics 03/27/19- today MRI left foot to rule out osteomyelitis, if osteomyelitis, pt is OK with toe amputation, continue current IV antibiotics, medication reviewed and continue to provide symptomatic treatment
--- NOTE | 2019-03-27 11:14 | MRI ---
EXAM: MRI left forefoot without contrast PROVIDED CLINICAL HISTORY: Wound involving the anterior fifth toe COMPARISON: Radiographs 03/26/2019 FINDINGS: Surgical absence of the first and third digits as well as the majority of the second digit is redemon strated. There are foci of subarticular signal alteration involving the second and third metatarsal heads compatible with subchondral insufficiency fractures in the absence of wounds in these regions. There is signal alteration involving the distal aspects of the fourth digit compatible with the fract ure demonstrated on recently performed radiographs. There is no signal alteration involving the fifth digit. Patchy marrow edema is present within the second and third metatarsal shafts as well as within the mi ddle cuneiform. No regional joint effusion is evident. Evaluation for focal fluid collection is limited due to lack o f IV contrast material. No significant tenosynovial fluid is evident. Diffuse signal alteration involving the intrinsic foot musculature typical for diabetic patients. IMPRESSION: 1. No signal alteration is apparent involving the fifth digit. 2. Signal alteration compatible with fracture described on 03/26/2019 radiographs involving the fourt h distal phalanx. 3. Findings compatible with subchondral insufficiency fractures involving the second and third metata rsal heads and presumed stress-related marrow edema involving the second and third metatarsal shafts and middle cuneiform.
[2019-03-27 14:22] LABS: Vancomycin, Trough 15.1 ug/mL
[2019-03-27] MEDS ORDERED: HumaLOG 300 UNITS/3 ML VIAL SC PRN (14:54)
[2019-03-27] MEDS: Zolpidem Tartrate 5 MG TAB PO PRN (20:01)
[2019-03-28] MEDS: Piperacillin/Tazobactam 3.375 GM in Sodium Chloride 0.9% 100 ML IVPB SCH ×2 (02:15→10:51)
[2019-03-28] MEDS: Vancomycin HCl 1.75 GM in Sodium Chloride 0.9% 500 ML IVPB SCH (03:19)
[2019-03-28] MEDS ORDERED: Piperacillin/Tazobactam 3.375 GM VIAL ONE (07:47)
[2019-03-28] MEDS ORDERED: Sodium Chloride 0.9% 100 ML ONE (07:48)
[2019-03-28] MEDS ORDERED: Fentanyl 100 MCG/2 ML VIAL ONE (08:29)
[2019-03-28] MEDS ORDERED: Lidocaine 2% PF 5 ML VIAL ONE (08:36)
[2019-03-28] MEDS ORDERED: Bupivacaine 0.25% HCL 30 ML VIAL ONE (08:36)
[2019-03-28] MEDS ORDERED: EPINEPHrine 1 MG/ML AMP ONE (08:36)
[2019-03-28] MEDS ORDERED: Bacitracin Zinc Ointment 30 gm TUBE ONE (08:41)
[2019-03-28] MEDS ORDERED: traMADol HCl 50 MG TAB PO PRN (08:46)
[2019-03-28] MEDS ORDERED: Acetaminophen 500 MG TAB PO PRN (08:46)
[2019-03-28] MEDS ORDERED: NPH, Human Insulin Isophane 300 UNIT/3 ML VIAL SC SCH (09:00)
[2019-03-28] MEDS ORDERED: Escitalopram Oxalate 10 mg Tablet PO SCH (09:00)
[2019-03-28] MEDS ORDERED: Amlodipine 10 MG TAB PO SCH (09:00)
[2019-03-28] MEDS ORDERED: Sulfameth/Trimethoprim DS 800-160mg TAB PO SCH (09:00)
[2019-03-28] MEDS ORDERED: Aspirin 81 mg Enteric Coated Tablet PO SCH (09:00)
[2019-03-28] MEDS ORDERED: Carvedilol 6.25 MG TAB PO SCH (09:00)
--- NOTE | 2019-03-28 09:28 | CON ---
DATE OF CONSULTATION: HISTORY OF PRESENT ILLNESS: Dwain Francis is a 63-year-old male patient, admitted by hospitalist for left fourth toe infection and osteomyelitis. He has exposed bone, distal phalanx. Plan is amputation of left fourth toe through the proximal phalanx with primary closure, and follow up in my office in 2 weeks. He can be discharged home on oral antibiotics for 7 to 10 days. He can remove his dressings in 2 to 3 days, wash the wound daily with soap and water, apply antibiotic ointment and a Band-Aid. He was sent home with orthotic shoe. I have seen him previously amputated other toes of the left foot. On April 19, 2018, amputated left second toe through the proximal phalanx. He has had previous amputations of the left great and third toes. His fifth toe remains. His right foot has been without problems. ALLERGIES: NONE. SOCIAL HISTORY: Tobacco, none. Alcohol, none. PAST SURGICAL HISTORY: Noncontributory except for toe amputations as noted above and coronary artery bypass grafting at [facility], four vessels, earlier this year. He had a myocardial infarction at that time. PAST MEDICAL HISTORY: Stable coronary artery disease, asymptomatic currently; hypertension; diabetes mellitus. HOME MEDICATIONS: 1. Aspirin 81 mg a day. 2. Pravachol 40 mg at bedtime. 3. Insulin 15 units subcu daily. 4. Carvedilol 6.25 mg b.i.d. 5. Metformin 1000 mg b.i.d. 6. Escitalopram 10 mg daily. 7. Amlodipine 10 mg daily. 8. Doxycycline 100 mg b.i.d. 9. In the hospital, he is also on vancomycin and Zosyn. REVIEW OF SYSTEMS: Ten-point otherwise noncontributory. PHYSICAL EXAMINATION: VITAL SIGNS: Height 5 feet 7 inches, weight 170 pounds. BMI 26, temperature 97.9 degrees, pulse 84, blood pressure 153/67. HEAD, EARS, EYES, NOSE, AND THROAT: Unremarkable. LUNGS: Clear to auscultation. CARDIAC: Regular rate and rhythm. No murmur or gallop. ABDOMEN: Soft and nontender. Well-healed midline sternotomy scar. EXTREMITIES: Hair on his feet. Right foot normal. Palpable pedal pulses. Prior amputation is well healed through the proximal phalanx of the first, second, and third toes, left. Left fifth toe was normal. Left fourth toe reveals distal excoriation, exposed phalanx. ASSESSMENT AND PLAN: Osteomyelitis plan is amputation of the proximal phalanx, primary closure. He understands risks and benefits. He can be discharged home on oral antibiotics for 7 days. Follow up in my office in 2 weeks. Diet and activity as tolerated. Weight bear as tolerated. Job ID: [id number]
[2019-03-28] MEDS ORDERED: Promethazine HCl 25 MG/ML VIAL SLOW IVP PRN (09:36)
[2019-03-28] MEDS ORDERED: Promethazine HCl 25 MG/ML VIAL IM PRN (09:36)
[2019-03-28] MEDS ORDERED: Ondansetron HCl/PF 4 MG/2 ML Vial IVP PRN (09:36)
[2019-03-28] MEDS: Famotidine 20 MG TAB PO SCH (10:26)
[2019-03-28] MEDS: Enoxaparin Sodium 40 MG/0.4 ML SYRINGE SC SCH (10:27)
--- NOTE | 2019-03-28 11:33 | OP ---
DATE OF PROCEDURE: 03/28/2019 PREOPERATIVE DIAGNOSIS: Gangrene, left 4th toe with osteomyelitis and exposed phalanx. POSTOPERATIVE DIAGNOSIS: Gangrene, left 4th toe with osteomyelitis and exposed phalanx. Note, previous amputation of the left great, 2nd, and 3rd toes with 5th toe remaining. PROCEDURE PERFORMED: Amputation of left 4th toe through the proximal phalanx. ANESTHESIA: Intravenous sedation and digital block with 0.5% Marcaine 30 mL, mixed with 1% Xylocaine with epinephrine 30 mL, 10 mL mixture used. DESCRIPTION OF PROCEDURE: The patient was taken to the operating room, where under intravenous sedation, left lower extremity was prepared with ChloraPrep and draped in routine fashion. Incision was made for amputation of left 4th toe through the proximal phalanx with a fishmouth type incision, amputating the phalanx, resecting approximately with rongeurs, debriding connective tissue, which had excellent blood supply and subcutaneous tissues and was irrigated. Subcutaneous tissue was approximated with 3-0 Monocryl, skin with 4-0 prolene. Sterile dressing was applied. Job ID: [id number]
--- NOTE | 2019-03-28 11:38 | PDOC.HOSPP ---
- Subjective Encounter Date: 03/28/19 Encounter Time: 08:30 Subjective: Patient seen and examined. No new complaints. No overnight events - Objective Vital Signs & Weight: Vital Signs (12 hours) Temp Pulse Resp BP BP Pulse Ox 03/28/19 10:27 84 155/68 H 03/28/19 08:00 96 03/28/19 06:59 97.9 F 84 19 153/67 H 96 03/28/19 04:52 97.7 F 70 19 151/74 H 95 Weight Weight 170 lb I&O: 03/27/19 03/28/19 03/29/19 06:59 06:59 06:59 Intake Total 1100 Balance 1100 Result Diagrams: 03/27/19 05:52 03/27/19 05:52 Additional Labs: Accuchecks 03/28/19 03/27/19 03/27/19 04:58 19:21 16:36 POC Glucose 220 H 122 H 295 H 03/27/19 03/26/19 11:30 16:47 POC Glucose 322 H 251 H Hospitalist ROS - Review of Systems ENT: denies: ear pain, ear discharge, nose pain, nose discharge, nose congestion , mouth pain, mouth swelling, throat pain, throat swelling, other Respiratory: denies: cough, dry, shortness of breath, hemoptysis, SOB with excertion, pleuritic pain, sputum, wheezing, other Cardiovascular: denies: chest pain, palpitations, orthopnea, paroxysmal noc. dyspnea, edema, light headedness, other Gastrointestinal: denies: nausea, vomiting, abdominal pain, diarrhea, constipation, melena, hematochezia, other Genitourinary: denies: dysuria, frequency, incontinence, hematuria, retention, other Musculoskeletal: denies: neck pain, shoulder pain, arm pain, back pain, hand pain, leg pain, foot pain, other - Medication Medications: Active Medications Generic Name Dose Route Start Last Admin Trade Name Freq PRN Reason Stop Dose Admin Acetaminophen 1,000 mg 03/28/19 08:46 03/28/19 10:26 Tylenol PO 1,000 mg Q6H PRN Administration Moderate to Severe Pain (6-10) Amlodipine Besylate 10 mg 03/28/19 09:00 03/28/19 10:27 Norvasc PO 10 mg DAILY JAZZY Administration Aspirin 81 mg 03/28/19 09:00 03/28/19 10:27 Ecotrin PO 81 mg DAILY JAZZY Administration Carvedilol 6.25 mg 03/28/19 09:00 03/28/19 10:27 Coreg PO 6.25 mg BID JAZZY Administration Enoxaparin Sodium 40 mg 03/27/19 09:00 03/28/19 10:27 Lovenox SC Not Given 0900 [facility] Escitalopram Oxalate 10 mg 03/28/19 09:00 03/28/19 10:27 Lexapro PO 10 mg DAILY JAZZY Administration Famotidine 20 mg 03/26/19 21:00 03/28/19 10:26 Pepcid PO 20 mg BID JAZZY Administration Insulin Human Lispro 0 units 03/27/19 14:54 03/27/19 16:55 Humalog SC 9 unit .AGGRESSIVE SLIDING PRN Administration AGGRESSIVE SLIDING SCALE Protocol Trimethoprim/Sulfamethoxazole 1 tab 03/28/19 09:00 03/28/19 10:27 Bactrim Ds PO 1 tab BID JAZZY Administration Zolpidem Tartrate 5 mg 03/26/19 17:33 03/27/19 20:01 Ambien PO 5 mg HSPRN PRN Administration Insomnia - Exam General Appearance: NAD, awake alert Eye: PERRL, anicteric sclera ENT: normocephalic atraumatic, no oropharyngeal lesions Neck: supple, symmetric, no JVD Heart: RRR, no murmur, no gallops, no rubs Respiratory: CTAB, no wheezes, no rales, no ronchi Gastrointestinal: soft, non-tender, non-distended, normal bowel sounds Extremities: no cyanosis, no clubbing, no edema Skin: normal turgor, no lesions Neurological: no focal deficits Musculoskeletal: normal tone, normal strength Psychiatric: normal affect, normal behavior, A&O x 3 Hosp A/P (1) Diabetic foot infection Code(s): E11.628 - TYPE 2 DIABETES MELLITUS WITH OTHER SKIN COMPLICATIONS; L08.9 - LOCAL INFECTION OF THE SKIN AND SUBCUTANEOUS TISSUE, UNSP Status: Acute (2) Osteomyelitis of toe of left foot Code(s): M86.9 - OSTEOMYELITIS, UNSPECIFIED Status: Suspected (3) CAD (coronary artery disease) Code(s): I25.10 - ATHSCL HEART DISEASE OF [place] CORONARY ARTERY W/O ANG PCTRS Status: Chronic (4) Ischemic cardiomyopathy Code(s): I25.5 - ISCHEMIC CARDIOMYOPATHY Status: Chronic (5) Diabetes type 2, controlled Code(s): E11.9 - TYPE 2 DIABETES MELLITUS WITHOUT COMPLICATIONS Status: Chronic (6) Dyslipidemia Code(s): E78.5 - HYPERLIPIDEMIA, UNSPECIFIED Status: Chronic (7) Hypertension Code(s): I10 - ESSENTIAL (PRIMARY) HYPERTENSION Status: Chronic - Plan old records reviewed/req 03/27/19- today MRI left foot to rule out osteomyelitis, if osteomyelitis, pt is OK with toe amputation, continue current IV antibiotics, medication reviewed and continue to provide symptomatic treatment 03/28/19- s/p toe amputation, dC home, medication reviewed and continue to provide symptomatic treatment
--- NOTE | 2019-03-28 12:38 | DIS ---
DATE OF ADMISSION: 03/26/2019 DATE OF DISCHARGE: 03/28/2019 DISCHARGE DISPOSITION: Home. PRIMARY DISCHARGE DIAGNOSIS: Toe osteomyelitis, status post amputation of left 4th toe. SECONDARY DISCHARGE DIAGNOSES: Ischemic cardiomyopathy, coronary artery disease, diabetes type 2, dyslipidemia, and hypertension. PRIMARY PROCEDURE/OPERATION: Amputation of left 4th toe through the proximal phalanx. RADIOLOGICAL INVESTIGATION: Foot x-ray, MRI of foot. SIGNIFICANT LABORATORY DATA: Hemoglobin 12.9, ESR 44, creatinine 0.93. CRP 5.4. DISCHARGE MEDICATIONS: 1. Amlodipine 10 mg p.o. daily. 2. Aspirin 81 mg p.o. daily. 3. Coreg 6.25 mg p.o. b.i.d. 4. Lexapro 10 mg p.o. daily. 5. Novolin N 15 units subcu daily. 6. Metformin 1000 mg p.o. b.i.d. 7. Pravastatin 40 mg p.o. at bedtime. 8. Doxycycline 100 mg p.o. b.i.d. for 7 days. CONTRAINDICATION: None. CODE STATUS: Full code. INPATIENT FRONT LINE SUPERVISOR: Dr. Calix. TEST RESULTS PENDING ON DISCHARGE: None. ALLERGIES: NO KNOWN DRUG ALLERGIES. DISCHARGE PLAN: Posthospital, the patient will follow up with Dr. Calix in two weeks. HOSPITAL COURSE: A 63-year-old male, who was sent by primary care physician for diabetic toe infection. The patient was suspected for osteomyelitis. The patient underwent toe amputation. The patient was treated with empiric antibiotic therapy while in hospital; on discharge, we changed to doxycycline. The patient was cleared for discharge by primary surgeon, Dr. Calix. Overall, the patient is doing very well and he wants to go home today. The patient will follow up with Dr. Calix. The patient is seen and examined at bedside today. Please see my progress note from today. Job ID: [id number]
[2019-03-28 12:51] VITALS: BP 149/65; TEMP 98.2
[2019-03-28] MEDS ORDERED: Ciprofloxacin 500 MG TAB PO SCH (20:00)
[2019-03-28] MEDS ORDERED: Atorvastatin Calcium 10 MG TAB PO SCH (21:00)
[2019-03-29] MEDS ORDERED: metFORMIN 500 MG TAB PO SCH (09:00)
== END 2019-03-28 13:17 | disposition home or self-care (01) | DRG 256 ==
LOC: ERS 10:49 → T4-A 13:19
PROVIDERS: ADMIT Internal Medicine; ATTEND Internal Medicine
PROC: 0Y6W0Z1 Detachment at Left 4th Toe, High, Open Approach (ICD-10-PCS; principal; 2019-03-28)
DX: E11.52 Type 2 diabetes mellitus with diabetic peripheral angiopathy with gangrene (principal); I96 Gangrene, not elsewhere classified; M86.8X7 Other osteomyelitis, ankle and foot; E11.69 Type 2 diabetes mellitus with other specified complication; I25.10 Atherosclerotic heart disease of native coronary artery without angina pectoris; Z95.1 Presence of aortocoronary bypass graft; Z86.73 Personal history of transient ischemic attack (TIA), and cerebral infarction without residual deficits; I10 Essential (primary) hypertension; E78.5 Hyperlipidemia, unspecified; I25.5 Ischemic cardiomyopathy; F41.9 Anxiety disorder, unspecified; F32.9 Major depressive disorder, single episode, unspecified; Z79.82 Long term (current) use of aspirin; Z79.4 Long term (current) use of insulin; Z79.899 Other long term (current) drug therapy; E11.65 Type 2 diabetes mellitus with hyperglycemia
CPT/HCPCS: 36415; 36416; 80048; 80053; 80202; 85025; 85652; 86140; 88305; 88311; 93005; 93010; 96365; 96367; J0171; J1650; J1815; J2001; J2543; J3010; J3370; J3490; J7050; S0020

== ENCOUNTER 2019-04-29 08:42 | Inpatient (IN) | payer MEDICARE, OTHER ==
--- NOTE | 2019-04-28 12:32 | HP ---
HISTORY OF PRESENT ILLNESS: Dwain Francis is a 63-year-old male patient, follows up after undergoing amputation of left 4th toe due to osteomyelitis and gangrene. This was amputated through the proximal phalanx. He had prior amputation of left toes 1,2, and 3 through the proximal phalanx and these are well healed. He has remaining left 5 toe. He recently injured his left 5th toe. He states that the 4th toe problem began like this. Today, he reports that his sutures removed, but he has an opening with exposed phalanx in his 4th toe. Recommendation is debridement of the left 4th toe exposed phalanx and wound with healing by secondary intention, and after discussion of options, he desires amputation of left 5th toe as it is prone to injury and has already been injured and he wants to resolve this without return to the operating room again. Plan at this time is amputation of left 5th toe through the proximal phalanx with primary closure and then debridement of the 4th toe with healing by secondary intention with wet-to-dry dressing. He understands risks and benefits and consents. ALLERGIES: NONE. SOCIAL HISTORY: Tobacco, none. Alcohol, none. PAST SURGICAL HISTORY: Amputations as noted above; coronary artery bypass grafting at [facility], 4-vessel, earlier this year, myocardial infarction at that time. No coronary symptoms currently. PAST MEDICAL HISTORY: Stable coronary artery disease, asymptomatic; hypertension; diabetes mellitus. MEDICATIONS: 1. Aspirin. 2. Pravachol. 3. Insulin. 4. Carvedilol. 5. Metformin. 6. Escitalopram. 7. Amlodipine . 8. Cipro and Bactrim, which I prescribed today. REVIEW OF SYSTEMS: Ten-point noncontributory. PHYSICAL EXAMINATION: VITAL SIGNS: Blood pressure 143/75, pulse 89, temperature 96 degrees. Weight 172 pounds, height 66 inches, BMI 27. HEAD EARS, EYES, NOSE AND THROAT: Unremarkable. LUNGS: Clear to auscultation. CARDIAC: Regular rate and rhythm. No murmur or gallop. ABDOMEN: Soft, nontender. EXTREMITIES: Palpable femoral, popliteal, dorsalis pedis pulses heard on his feet. Prior amputation in left 1st, 2nd, and 3rd toes at the proximal phalanx with wounds well healed. Sutures in left 4th toe status post amputation of the proximal phalanx. Sutures removed, opening laterally with exposed phalanx, but no cellulitis, no purulent discharge. Left 5th toe with recent traumatic findings over the medial tip. ASSESSMENT AND PLAN: 1. Plan amputation of left 5th toe as discussed above with primary closure. 2. Debridement of opening in the left 4th toe healing by secondary intention. 3. Diabetes mellitus. 4. Hypertension. 5. Coronary artery disease, stable. Job ID: [id number]
[2019-04-28 14:11] VITALS: BMI 27.4
[2019-04-29] MEDS ORDERED: Cefepime 2 GM in Sodium Chloride 0.9% 100 ML IVPB SCH (09:30)
[2019-04-29] MEDS ORDERED: Lidocaine 1% PF 5 ML VIAL ONE (09:33)
[2019-04-29] MEDS ORDERED: PROPOFOL 200 MG/20 ML VIAL ONE (09:33)
[2019-04-29 09:45] LABS: #Eosinphils 0.3 thou/uL (0.0-0.7); #Lymphocytes 1.2 thou/uL (1.20-3.40); #Monocytes 0.6 thou/uL (0.11-0.59); #Neutrophils 3.3 thou/uL (1.40-6.50); %Basophils 0.5 % (0.0-1.0); %Lymphocytes 22.2 % (21.0-51.0); %Monocytes 10.4 % (0.0-10.0); %Neutrophils 61.9 % (42.0-75.0); Hemoglobin 14.1 g/dL (14.0-18.0); Mean Corpuscular HGB CONC 32.6 g/dL (32.0-36.0); Mean Corpuscular Hemoglobin 28.7 pg (27.0-31.0); Mean Platelet Volume 8.6 fL (7.4-10.4); Platelet Count 185 thou/uL (130-400); Red Blood Cell (RBC) Count 4.91 mill/uL (4.70-6.10); White Blood Cell (WBC) Count 5.3 thou/uL (4.8-10.8)
[2019-04-29 10:06] LABS: Anion Gap 10 mmol/L (10-20); BUN (Urea Nitrogen) 14 mg/dL (8.4-25.7); Calc. Creatinine Clearance 72 mL/min (70-130); Calcium 9.5 mg/dL (7.8-10.44); Carbon Dioxide 29 mmol/L (23-31); Chloride 102 mmol/L (98-107); Estimated GFR-MDRD 66; Glucose 210 mg/dL (80-115); Potassium 4.2 mmol/L (3.5-5.1); Sodium 137 mmol/L (136-145)
[2019-04-29] MEDS ORDERED: Fentanyl 100 MCG/2 ML VIAL ONE (11:17)
[2019-04-29] MEDS ORDERED: Ondansetron HCl/PF 4 MG/2 ML Vial IVP PRN (12:00)
[2019-04-29] MEDS ORDERED: Meperidine HCl/PF 25 MG/ML VIAL SLOW IVP PRN (12:00)
--- NOTE | 2019-04-29 18:52 | OP ---
DATE OF PROCEDURE: 04/29/2019 PREOPERATIVE DIAGNOSES: Diabetic left foot infection with exposed phalanx from previous partial amputation of left 4th toe and recently injured left 5th toe and previous amputations of left 1st, 2nd, and 3rd toes. POSTOPERATIVE DIAGNOSES: Diabetic left foot infection with exposed phalanx from previous partial amputation of left 4th toe and recently injured left 5th toe and previous amputations of left 1st, 2nd, and 3rd toes. PROCEDURES PERFORMED: Amputation of left 5th toe through the proximal phalanx with primary closure. Amputation of left 4th toe proximal phalanx, rongeur proximally. Debridement of the wound, washout, and wound left open for healing by secondary intention. Normal saline wet-to-dry dressings applied. ANESTHESIA: General LMA. DESCRIPTION OF PROCEDURE: The patient was taken to the operating room. Under general LMA anesthesia, left foot was prepared with ChloraPrep and draped in routine fashion. Left 5th toe was amputated with a fishmouth-type incision around the proximal phalanx, amputating the toe with the bone cutter and resecting the phalanx proximally with a rongeur. Connective tissue debrided sharply. There was excellent bleeding controlled with cautery. Wound was irrigated. Subcutaneous tissue was approximated with 4-0 Monocryl, skin with 4-0 Prolene. Xeroform sterile dressing was applied. The open wound in left 4th toe, that was partially open with exposed phalanx, was irrigated. Subcutaneous tissue and phalanx were resected proximally with a rongeur, debrided sharply. Wound revised to a fishmouth-type incision, it was irrigated. Hemostasis gained with the cautery. There was good bleeding. Normal saline wet-to-dry dressings applied. Gauze dressing applied. applied. The patient tolerated the procedure well. Job ID: [id number]
--- NOTE | 2019-05-03 19:21 | PQF ---
[employer] Reports Winform Viewer KRYSTAL CORTES JR, RICHARD D MD [id number] CLINICAL DOCUMENTATION CLARIFICATION FORM: POST DISCHARGE Addendum to original discharge summary date: ____ Late entry note date: __ DATE: 05/03/19 ATTN: Eliazar Calix Please exercise your independent, professional judgment in responding to the clarification form. Clinical indicators are provided on the bottom of this form for your review ___ Final Diagnosis on the Pathology report: Ischemia and necrotic bone Clarification of Pathology report: Please check appropriate box(s): [ ] Agree w the pathology finding of: [ ] Other explanation of pathology findings (please specify) [ ] Other diagnosis please specify [ ] Unable to determine For continuity of documentation, please document condition throughout progress notes and discharge summary. Thank You. CLINICAL INDICATORS - SIGNS/ SYMPTOMS / LABS Path- Ischemia and necrotic bone OP Report pg.1- Diabetic left foot infection with exposed phalanx from previous partial amputation of left 4th toe OP Report pg.1- recent injury of left 5th toe RISK FACTORS DM H and P pg.1 CAD_ H and P pg.1 Hypertension- H and P pg.1 63 years old- H and P pg.1 TREATMENTS Amputation- OP report pg.1 IV fluids- MAR IV antibiotics- MAR (This form is maintained as a part of the permanent medical record) 2014 [employer]. All Rights Reserved [email or web address]
== END 2019-04-29 15:40 | disposition home or self-care (01) | DRG 505 ==
LOC: SURG A 08:54 → EDSTATUS 14:57
PROVIDERS: ADMIT Specialist; ATTEND Specialist
PROC: 0Y6Y0Z1 Detachment at Left 5th Toe, High, Open Approach (ICD-10-PCS; principal; 2019-04-29)
PROC: 0QBR0ZZ Excision of Left Toe Phalanx, Open Approach (ICD-10-PCS; 2019-04-29)
DX: T87.89 Other complications of amputation stump (principal); E11.69 Type 2 diabetes mellitus with other specified complication; I25.10 Atherosclerotic heart disease of native coronary artery without angina pectoris; F41.9 Anxiety disorder, unspecified; F32.9 Major depressive disorder, single episode, unspecified; I11.0 Hypertensive heart disease with heart failure; I50.9 Heart failure, unspecified; Y83.5 Amputation of limb(s) as the cause of abnormal reaction of the patient, or of later complication, without mention of misadventure at the time of the procedure; Z79.82 Long term (current) use of aspirin; Z79.4 Long term (current) use of insulin; Z79.899 Other long term (current) drug therapy; Z86.73 Personal history of transient ischemic attack (TIA), and cerebral infarction without residual deficits; Z95.1 Presence of aortocoronary bypass graft
CPT/HCPCS: 36415; 80048; 85025; 88305; 88311; J2001; J2704; J3010; J3370

== ENCOUNTER 2019-05-03 09:04 | Outpatient (CLI) | payer OTHER ==
--- NOTE | 2019-05-03 09:56 | MMO ---
Bilateral MAMMO Bilat Diag DDI+ETHAN. CLINICAL HISTORY: Patient is 63 years old and is seen for diagnostic exam,lump or thickening and pain in the left breast. The patient has no family history of breast cancer. The patient has no personal history of cancer. VIEWS: The views performed were: bilateral craniocaudal with tomosynthesis; bilateral mediolateral oblique with tomosynthesis; and bilateral mediolateral with tomosynthesis. FILMS COMPARED: The present examination has been compared to a prior imaging study performed at [facility] on 05/03/2019. This study has been interpreted with the assistance of computer-aided detection. MAMMOGRAM FINDINGS: There are scattered fibroglandular densities. Finding 1: There are benign appearing calcifications seen in the left breast. Finding 2: There is a focal asymmetry seen in the anterior sub-areolar region of the left breast. Appearance of mild gynecomastia. There are no suspicious masses, suspicious calcifications, or new areas of architectural distortion. IMPRESSION: THERE IS NO MAMMOGRAPHIC EVIDENCE OF MALIGNANCY. A ROUTINE FOLLOW-UP MAMMOGRAM IN 1 YEAR IS RECOMMENDED. THE RESULTS OF THIS EXAM WERE SENT TO THE PATIENT. ACR BI-RADS Category 2 - Benign finding MAMMOGRAPHY NOTE: 1. A negative mammogram report should not delay a biopsy if a dominant of clinically suspicious mass is present. 2. Approximately 10% to 15% of breast cancers are not detected by mammography. 3. Adenosis and dense breasts may obscure an underlying neoplasm. Reported by: YOLANDE KEATING MD Electonically Signed: [id number]
--- NOTE | 2019-05-03 12:02 | ULT ---
SONOGRAM LEFT BREAST: Date: 05/03/2019 HISTORY: Left breast lump. Pain. FINDINGS: Correlated with diagnostic mammography performed on the same date. FINDINGS: Sonographic evaluation of the retroareolar aspect of the left breast shows [id number] hypoechoic s tructure having the appearance of mild gynecomastia. This correlates with the mammographic appearance . No shadowing mass is evident. IMPRESSION: BI-RADS Category 2 - Benign findings. Mild unilateral gynecomastia. POS: CHE
== END 2019-05-03 09:05 | disposition home or self-care (01) ==
LOC: BICMAMMO 09:04
PROVIDERS: ATTEND Family Medicine
DX: N64.4 Mastodynia (principal); N62 Hypertrophy of breast
CPT/HCPCS: 77066; G0279

== ENCOUNTER 2021-03-11 13:05 | Emergency (ER) | payer MEDICARE ==
[2021-03-11] MEDS ORDERED: Iopamidol-370 76% 500 ML 1 ML ONE ×2 (13:26→13:27)
[2021-03-11 15:23] LABS: #Eosinphils 0.4 thou/uL (0.0-0.7); #Lymphocytes 1.8 thou/uL (1.20-3.40); #Monocytes 0.6 thou/uL (0.11-0.59); #Neutrophils 7.7 thou/uL (1.40-6.50); %Basophils 0.2 % (0.0-1.0); %Eosinophils 3.4 % (0.0-10.0); %Neutrophils 73.4 % (42.0-75.0); Hemoglobin 11.9 g/dL (14.0-18.0); Mean Corpuscular HGB CONC 31.9 g/dL (32.0-36.0); Mean Corpuscular Hemoglobin 30.2 pg (27.0-31.0); Mean Corpuscular Volume 94.6 fL (78.0-98.0); Mean Platelet Volume 7.8 fL (7.4-10.4); Platelet Count 325 thou/uL (130-400); RBC Distribution Width 12.2 % (11.5-14.5); Red Blood Cell (RBC) Count 3.94 mill/uL (4.70-6.10); White Blood Cell (WBC) Count 10.5 thou/uL (4.8-10.8)
[2021-03-11 15:25] LABS: Bacteria/HPF None Seen HPF (None Seen); Bilirubin Negative (Negative); Blood, Urine Negative (Negative); Clarity Clear (Clear); Glucose, Urine (Dipstick) Normal (Negative); Ketone, Urine Negative (Negative); Leukocyte Negative Leu/uL (Negative); Nitrite Negative (Negative); Protein, Urine (Dipstick) 70 mg/dL (Neg-Trace); RBC/HPF 0-3 HPF (0-3); Specific Gravity, Urine 1.018 (1.002-1.036); Squamous Epithelial 0-3 HPF (0-3); WBC/HPF 0-3 HPF (0-3); pH, Urine 7.5 (5.0-9.0)
[2021-03-11 15:44] LABS: ALT (SGPT) 13 U/L (8-55); AST (SGOT) 19 U/L (5-34); Albumin 3.7 g/dL (3.4-4.8); Alkaline Phosphatase 73 U/L (40-110); Anion Gap 14 mmol/L (10-20); BUN (Urea Nitrogen) 9 mg/dL (8.4-25.7); Bilirubin, Total 0.5 mg/dL (0.2-1.2); Calc. Creatinine Clearance 0 mL/min (70-130); Calcium 9.7 mg/dL (7.8-10.44); Carbon Dioxide 27 mmol/L (23-31); Chloride 98 mmol/L (98-107); Globulin 3.6 g/dL (2.4-3.5); Glucose 137 mg/dL (80-115); Lipase 8 U/L (8-78); Potassium 4.8 mmol/L (3.5-5.1); Protein, Total 7.3 g/dL (5.8-8.1); Sodium 134 mmol/L (136-145)
[2021-03-11] MEDS ORDERED: Ondansetron PF 4 MG/2 ML Vial ONE (16:12)
== END 2021-03-11 17:24 | disposition home or self-care (01) ==
LOC: ERS 13:05
DX: D64.9 Anemia, unspecified (principal); R53.1 Weakness; I10 Essential (primary) hypertension; E11.9 Type 2 diabetes mellitus without complications; I25.2 Old myocardial infarction; Z86.73 Personal history of transient ischemic attack (TIA), and cerebral infarction without residual deficits; E78.00 Pure hypercholesterolemia, unspecified; Z87.891 Personal history of nicotine dependence; Z79.4 Long term (current) use of insulin; Z79.899 Other long term (current) drug therapy
CPT/HCPCS: 36415; 70450; 71046; 74177; 80053; 81003; 81015; 83690; 84484; 85025; 87040; 87086; 93005; 96374; J2405; Q9967

== ENCOUNTER 2021-03-18 12:37 | Emergency (ER) | payer MEDICARE ==
[2021-03-18] MEDS ORDERED: diphenhydrAMINE 50 MG/ML VIAL ONE (14:22)
[2021-03-18] MEDS ORDERED: Ketorolac Tromethamine 30 MG/ML VIAL ONE (14:22)
[2021-03-18] MEDS ORDERED: Prochlorperazine 10 MG/2 ML VIAL IVP SCH (14:30)
[2021-03-18 14:39] LABS: #Eosinphils 0.2 thou/uL (0.0-0.7); #Lymphocytes 1.3 thou/uL (1.20-3.40); #Monocytes 0.6 thou/uL (0.11-0.59); #Neutrophils 4.8 thou/uL (1.40-6.50); %Basophils 0.7 % (0.0-1.0); %Eosinophils 2.4 % (0.0-10.0); %Lymphocytes 19.1 % (21.0-51.0); %Monocytes 8.2 % (0.0-10.0); %Neutrophils 69.6 % (42.0-75.0); Hemoglobin 11.4 g/dL (14.0-18.0); Mean Corpuscular HGB CONC 33.3 g/dL (32.0-36.0); Mean Corpuscular Hemoglobin 30.9 pg (27.0-31.0); Mean Corpuscular Volume 92.8 fL (78.0-98.0); Platelet Count 329 thou/uL (130-400); RBC Distribution Width 12.5 % (11.5-14.5); Red Blood Cell (RBC) Count 3.69 mill/uL (4.70-6.10); White Blood Cell (WBC) Count 6.9 thou/uL (4.8-10.8)
[2021-03-18 14:56] LABS: ALT (SGPT) 8 U/L (8-55); AST (SGOT) 14 U/L (5-34); Albumin 3.5 g/dL (3.4-4.8); Alkaline Phosphatase 64 U/L (40-110); Anion Gap 10 mmol/L (10-20); BUN (Urea Nitrogen) 11 mg/dL (8.4-25.7); Bilirubin, Total 0.4 mg/dL (0.2-1.2); Calc. Creatinine Clearance 0 mL/min (70-130); Calcium 9.5 mg/dL (7.8-10.44); Carbon Dioxide 26 mmol/L (23-31); Chloride 100 mmol/L (98-107); Globulin 3.5 g/dL (2.4-3.5); Glucose 111 mg/dL (80-115); Potassium 4.6 mmol/L (3.5-5.1); Sodium 131 mmol/L (136-145)
== END 2021-03-18 16:27 | disposition home or self-care (01) ==
LOC: ERS 12:37
DX: R51.9 Headache, unspecified (principal); I10 Essential (primary) hypertension; E78.00 Pure hypercholesterolemia, unspecified; E11.9 Type 2 diabetes mellitus without complications; I25.2 Old myocardial infarction; Z87.891 Personal history of nicotine dependence; Z86.73 Personal history of transient ischemic attack (TIA), and cerebral infarction without residual deficits; Z79.4 Long term (current) use of insulin; Z87.19 Personal history of other diseases of the digestive system; Z79.899 Other long term (current) drug therapy
CPT/HCPCS: 36415; 80053; 85025; 93005; 96374; 96375; J0780; J1200; J1885

== ENCOUNTER 2021-04-20 17:46 | Inpatient (IN) | payer MEDICARE ==
[2021-04-20] MEDS ORDERED: Dextrose 50% Abboject 50 ML SYRINGE SLOW IVP PRN (19:58)
[2021-04-20] MEDS ORDERED: Dextrose 5% in Water 1,000 ML IV PRN (19:58)
[2021-04-20] MEDS ORDERED: Acetaminophen 325 MG TAB PO PRN (20:00)
[2021-04-20] MEDS ORDERED: Ondansetron PF 4 MG/2 ML Vial IVP PRN (20:00)
[2021-04-20] MEDS ORDERED: Sodium Chloride 0.9% 1,000 ML IV SCH (20:30)
[2021-04-20] MEDS: HYDROcodone/Acetaminophen 7.5/325 mg Tablet PO PRN (20:46)
[2021-04-20] MEDS: Famotidine 20 MG TAB PO SCH (20:47)
[2021-04-20 20:57] LABS: #Eosinphils 0.2 thou/uL (0.0-0.7); #Lymphocytes 1.5 thou/uL (1.20-3.40); #Monocytes 0.7 thou/uL (0.11-0.59); #Neutrophils 3.8 thou/uL (1.40-6.50); %Basophils 0.3 % (0.0-1.0); %Eosinophils 3.6 % (0.0-10.0); %Lymphocytes 24.2 % (21.0-51.0); %Monocytes 10.8 % (0.0-10.0); %Neutrophils 61.1 % (42.0-75.0); Hemoglobin 8.7 g/dL (14.0-18.0); Mean Corpuscular HGB CONC 32.5 g/dL (32.0-36.0); Mean Corpuscular Hemoglobin 30.4 pg (27.0-31.0); Mean Corpuscular Volume 93.3 fL (78.0-98.0); Mean Platelet Volume 7.4 fL (7.4-10.4); Platelet Count 293 thou/uL (130-400); RBC Distribution Width 13.6 % (11.5-14.5); Red Blood Cell (RBC) Count 2.86 mill/uL (4.70-6.10); White Blood Cell (WBC) Count 6.2 thou/uL (4.8-10.8)
[2021-04-20 21:11] LABS: Anion Gap 11 mmol/L (10-20); BUN (Urea Nitrogen) 7 mg/dL (8.4-25.7); Calc. Creatinine Clearance 0 mL/min (70-130); Calcium 8.5 mg/dL (7.8-10.44); Carbon Dioxide 26 mmol/L (23-31); Chloride 99 mmol/L (98-107); Glucose 249 mg/dL (80-115); Potassium 3.9 mmol/L (3.5-5.1); Sodium 132 mmol/L (136-145)
[2021-04-20] MEDS: HumaLOG 300 UNITS/3 ML VIAL SC PRN (21:11)
[2021-04-21] MEDS: Cefepime 1 GM in Sodium Chloride 0.9% 100 ML IVPB SCH ×2 (00:21→11:37)
[2021-04-21 00:48] VITALS: BMI 26.6
[2021-04-21] MEDS: VANCOMYCIN 1.25 GM/250 ML BAG 1.25 GM in Premix Bag 1 BAG IVPB SCH ×2 (02:58→14:13)
[2021-04-21] MEDS: HYDROcodone/Acetaminophen 7.5/325 mg Tablet PO PRN ×3 (03:03→19:18)
[2021-04-21] MEDS: HumaLOG 300 UNITS/3 ML VIAL SC PRN ×4 (06:12→21:12)
[2021-04-21] MEDS ORDERED: Lantus 1000 UNITS/10 ML VIAL SC SCH ×2 (09:00→13:00)
[2021-04-21] MEDS ORDERED: FLU VACC QS2021-22(65YR UP)/PF 240 MCG/0.7 ML SYRINGE IM ONE (09:00)
[2021-04-21] MEDS: Famotidine 20 MG TAB PO SCH ×2 (10:16→19:20)
[2021-04-21 13:43] LABS: #Eosinphils 0.2 thou/uL (0.0-0.7); #Lymphocytes 1.2 thou/uL (1.20-3.40); #Monocytes 0.5 thou/uL (0.11-0.59); #Neutrophils 4.1 thou/uL (1.40-6.50); %Basophils 0.3 % (0.0-1.0); %Eosinophils 3.7 % (0.0-10.0); %Monocytes 8.4 % (0.0-10.0); %Neutrophils 67.6 % (42.0-75.0); Hemoglobin 8.7 g/dL (14.0-18.0); Mean Corpuscular HGB CONC 32.6 g/dL (32.0-36.0); Mean Corpuscular Hemoglobin 30.4 pg (27.0-31.0); Mean Corpuscular Volume 93.4 fL (78.0-98.0); Mean Platelet Volume 7.4 fL (7.4-10.4); Platelet Count 309 thou/uL (130-400); RBC Distribution Width 13.5 % (11.5-14.5); Red Blood Cell (RBC) Count 2.87 mill/uL (4.70-6.10)
[2021-04-21 13:51] LABS: Hemoglobin A1c 10.7 % (4.0-6.0)
[2021-04-21 13:56] LABS: PTT 39.1 sec (22.9-36.1); Prothrombin Time 13.2 sec (12.0-14.7)
[2021-04-21 14:03] LABS: Anion Gap 15 mmol/L (10-20); BUN (Urea Nitrogen) 7 mg/dL (8.4-25.7); Calc. Creatinine Clearance 84 mL/min (70-130); Calcium 8.5 mg/dL (7.8-10.44); Carbon Dioxide 24 mmol/L (23-31); Chloride 98 mmol/L (98-107); Glucose 263 mg/dL (80-115); Potassium 4.5 mmol/L (3.5-5.1); Sodium 132 mmol/L (136-145)
[2021-04-21] MEDS: Carvedilol 6.25 MG TAB PO SCH (16:43)
[2021-04-21] MEDS: Atorvastatin Calcium 40 MG TAB PO SCH (19:19)
[2021-04-21] MEDS: Escitalopram Oxalate 10 mg Tablet PO SCH (19:19)
[2021-04-21] MEDS ORDERED: traMADol HCl 50 MG TAB PO SCH (20:37)
[2021-04-22] MEDS: Cefepime 1 GM in Sodium Chloride 0.9% 100 ML IVPB SCH (00:55)
[2021-04-22] MEDS: VANCOMYCIN 1.25 GM/250 ML BAG 1.25 GM in Premix Bag 1 BAG IVPB SCH ×2 (02:07→15:00)
[2021-04-22] MEDS: Famotidine 20 MG TAB PO SCH ×2 (08:44→20:24)
[2021-04-22] MEDS: Carvedilol 6.25 MG TAB PO SCH ×2 (08:44→19:11)
[2021-04-22] MEDS: Aspirin 325 mg Enteric Coated Tablet PO SCH (08:44)
[2021-04-22] MEDS: HumaLOG 300 UNITS/3 ML VIAL SC PRN ×3 (08:45→21:44)
[2021-04-22] MEDS ORDERED: Magnevist 469MG/ML 20 ML VIAL ONE (11:50)
[2021-04-22] MEDS: Cefepime 2 GM in Sodium Chloride 0.9% 100 ML IVPB SCH (11:53)
[2021-04-22 13:46] LABS: Vancomycin, Trough 19.3 ug/mL
[2021-04-22] MEDS ORDERED: Fentanyl 100 MCG/2 ML VIAL ONE (15:55)
[2021-04-22] MEDS ORDERED: PROPOFOL 200 MG/20 ML VIAL ONE (16:42)
[2021-04-22] MEDS ORDERED: Lidocaine 1% PF 5 ML VIAL ONE (16:42)
[2021-04-22] MEDS ORDERED: Ondansetron PF 4 MG/2 ML Vial ONE (16:42)
[2021-04-22] MEDS ORDERED: traMADol HCl 50 MG TAB PO PRN (17:26)
[2021-04-22] MEDS ORDERED: Promethazine HCl 25 MG/ML VIAL IM PRN (17:28)
[2021-04-22] MEDS ORDERED: Ondansetron HCl/PF 4 MG/2 ML Vial IVP PRN (17:28)
[2021-04-22] MEDS ORDERED: Promethazine HCl 25 MG/ML VIAL IVPB PRN (17:28)
[2021-04-22] MEDS: Escitalopram Oxalate 10 mg Tablet PO SCH (20:24)
[2021-04-22] MEDS: Atorvastatin Calcium 40 MG TAB PO SCH (20:24)
[2021-04-22] MEDS: HYDROcodone/Acetaminophen 7.5/325 mg Tablet PO PRN (20:24)
[2021-04-22] MEDS: Enoxaparin Sodium 40 MG/0.4 ML SYRINGE SC SCH (21:41)
[2021-04-22] MEDS: Lantus 1000 UNITS/10 ML VIAL SC SCH (21:41)
[2021-04-23] MEDS: Cefepime 2 GM in Sodium Chloride 0.9% 100 ML IVPB SCH ×2 (00:41→14:20)
[2021-04-23] MEDS: VANCOMYCIN 1.25 GM/250 ML BAG 1.25 GM in Premix Bag 1 BAG IVPB SCH ×2 (01:28→15:02)
[2021-04-23] MEDS: HYDROcodone/Acetaminophen 7.5/325 mg Tablet PO PRN ×2 (05:55→20:32)
[2021-04-23] MEDS: HumaLOG 300 UNITS/3 ML VIAL SC PRN ×2 (06:19→16:42)
[2021-04-23] MEDS: Aspirin 325 mg Enteric Coated Tablet PO SCH (09:36)
[2021-04-23] MEDS: Carvedilol 6.25 MG TAB PO SCH ×2 (09:36→16:42)
[2021-04-23] MEDS: Famotidine 20 MG TAB PO SCH ×2 (09:36→20:32)
[2021-04-23] MEDS: Escitalopram Oxalate 10 mg Tablet PO SCH (20:32)
[2021-04-23] MEDS: Atorvastatin Calcium 40 MG TAB PO SCH (20:32)
[2021-04-23] MEDS: Enoxaparin Sodium 40 MG/0.4 ML SYRINGE SC SCH (20:33)
[2021-04-23] MEDS: Lantus 1000 UNITS/10 ML VIAL SC SCH (20:33)
[2021-04-24] MEDS: Cefepime 2 GM in Sodium Chloride 0.9% 100 ML IVPB SCH ×2 (00:53→12:03)
[2021-04-24] MEDS: VANCOMYCIN 1.25 GM/250 ML BAG 1.25 GM in Premix Bag 1 BAG IVPB SCH ×2 (01:46→17:18)
[2021-04-24] MEDS: Carvedilol 6.25 MG TAB PO SCH ×2 (08:43→17:29)
[2021-04-24] MEDS: Aspirin 325 mg Enteric Coated Tablet PO SCH (08:43)
[2021-04-24] MEDS: Famotidine 20 MG TAB PO SCH ×2 (08:44→21:31)
[2021-04-24] MEDS: Senokot S 8.6-50 MG TAB PO PRN (08:44)
[2021-04-24] MEDS ORDERED: Polyethylene Glycol 3350 17 GM Packet PO SCH (12:00)
[2021-04-24] MEDS: HumaLOG 300 UNITS/3 ML VIAL SC PRN ×2 (12:38→17:30)
[2021-04-24] MEDS ORDERED: Vancomycin 1 GM in Premix Bag 1 BAG IVPB SCH ×2 (16:00→20:00)
[2021-04-24] MEDS: HYDROcodone/Acetaminophen 7.5/325 mg Tablet PO PRN (17:29)
[2021-04-24] MEDS: cefTRIAXone\\ROCEPHIN 2 GM in Sodium Chloride 0.9% 100 ML IVPB SCH (18:48)
[2021-04-24] MEDS: Escitalopram Oxalate 10 mg Tablet PO SCH (21:31)
[2021-04-24] MEDS: Atorvastatin Calcium 40 MG TAB PO SCH (21:31)
[2021-04-24] MEDS: Lantus 1000 UNITS/10 ML VIAL SC SCH (21:31)
[2021-04-24] MEDS: metroNIDAZOLE 500 MG TAB PO SCH (21:31)
[2021-04-24] MEDS: Enoxaparin Sodium 40 MG/0.4 ML SYRINGE SC SCH (21:31)
[2021-04-25] MEDS: HumaLOG 300 UNITS/3 ML VIAL SC PRN ×2 (06:26→16:44)
[2021-04-25] MEDS: Polyethylene Glycol 3350 17 GM Packet PO SCH (08:38)
[2021-04-25] MEDS: metroNIDAZOLE 500 MG TAB PO SCH ×3 (08:38→20:27)
[2021-04-25] MEDS: Famotidine 20 MG TAB PO SCH ×2 (08:38→20:28)
[2021-04-25] MEDS: Carvedilol 6.25 MG TAB PO SCH ×2 (08:38→16:03)
[2021-04-25] MEDS: Aspirin 325 mg Enteric Coated Tablet PO SCH (08:38)
[2021-04-25] MEDS: Senokot S 8.6-50 MG TAB PO PRN (08:38)
[2021-04-25] MEDS: Ondansetron ODT 4 MG TAB PO PRN (08:38)
[2021-04-25] MEDS: HYDROcodone/Acetaminophen 7.5/325 mg Tablet PO PRN ×2 (08:39→20:27)
[2021-04-25 08:49] LABS: #Eosinphils 0.2 thou/uL (0.0-0.7); #Lymphocytes 1.4 thou/uL (1.20-3.40); #Monocytes 0.4 thou/uL (0.11-0.59); %Basophils 0.9 % (0.0-1.0); %Eosinophils 3.2 % (0.0-10.0); %Lymphocytes 28.1 % (21.0-51.0); %Monocytes 8.2 % (0.0-10.0); %Neutrophils 59.7 % (42.0-75.0); Hemoglobin 9.5 g/dL (14.0-18.0); Mean Corpuscular HGB CONC 32.5 g/dL (32.0-36.0); Mean Corpuscular Volume 92.2 fL (78.0-98.0); Mean Platelet Volume 7.3 fL (7.4-10.4); Platelet Count 309 thou/uL (130-400); RBC Distribution Width 13.9 % (11.5-14.5); Red Blood Cell (RBC) Count 3.17 mill/uL (4.70-6.10)
[2021-04-25 09:08] LABS: ALT (SGPT) 10 U/L (8-55); AST (SGOT) 16 U/L (5-34); Albumin 2.7 g/dL (3.4-4.8); Alkaline Phosphatase 62 U/L (40-110); Anion Gap 11 mmol/L (10-20); BUN (Urea Nitrogen) 8 mg/dL (8.4-25.7); Bilirubin, Total 0.2 mg/dL (0.2-1.2); Calc. Creatinine Clearance 100 mL/min (70-130); Calcium 8.6 mg/dL (7.8-10.44); Carbon Dioxide 27 mmol/L (23-31); Chloride 103 mmol/L (98-107); Globulin 3.5 g/dL (2.4-3.5); Glucose 99 mg/dL (80-115); Potassium 3.9 mmol/L (3.5-5.1); Protein, Total 6.2 g/dL (5.8-8.1); Sodium 137 mmol/L (136-145)
[2021-04-25] MEDS: cefTRIAXone\\ROCEPHIN 2 GM in Sodium Chloride 0.9% 100 ML IVPB SCH (18:16)
[2021-04-25] MEDS: Enoxaparin Sodium 40 MG/0.4 ML SYRINGE SC SCH (20:28)
[2021-04-25] MEDS: Atorvastatin Calcium 40 MG TAB PO SCH (20:28)
[2021-04-25] MEDS: Escitalopram Oxalate 10 mg Tablet PO SCH (20:28)
[2021-04-25] MEDS: Lantus 1000 UNITS/10 ML VIAL SC SCH (20:39)
[2021-04-26] MEDS: HumaLOG 300 UNITS/3 ML VIAL SC PRN (07:17)
[2021-04-26] MEDS: Polyethylene Glycol 3350 17 GM Packet PO SCH (09:03)
[2021-04-26] MEDS: metroNIDAZOLE 500 MG TAB PO SCH (09:03)
[2021-04-26] MEDS: Famotidine 20 MG TAB PO SCH (09:03)
[2021-04-26] MEDS: Aspirin 325 mg Enteric Coated Tablet PO SCH (09:03)
[2021-04-26] MEDS: Carvedilol 6.25 MG TAB PO SCH (09:03)
[2021-04-26] MEDS: Ondansetron ODT 4 MG TAB PO PRN (09:04)
[2021-04-26] MEDS: HYDROcodone/Acetaminophen 7.5/325 mg Tablet PO PRN (09:04)
[2021-04-26 09:19] VITALS: BP 164/72; TEMP 97
== END 2021-04-26 14:52 | disposition home or self-care (01) | DRG 617 ==
LOC: MSONC 17:46
PROVIDERS: ADMIT Family Medicine; ATTEND Family Medicine
PROC: 0Y6Q0Z0 Detachment at Left 1st Toe, Complete, Open Approach (ICD-10-PCS; principal; 2021-04-22)
PROC: 0Y6S0Z0 Detachment at Left 2nd Toe, Complete, Open Approach (ICD-10-PCS; 2021-04-22)
DX: E11.69 Type 2 diabetes mellitus with other specified complication (principal); M86.8X7 Other osteomyelitis, ankle and foot; E87.1 Hypo-osmolality and hyponatremia; I25.10 Atherosclerotic heart disease of native coronary artery without angina pectoris; I10 Essential (primary) hypertension; D64.9 Anemia, unspecified; E11.65 Type 2 diabetes mellitus with hyperglycemia; Z20.822 Contact with and (suspected) exposure to COVID-19; E11.40 Type 2 diabetes mellitus with diabetic neuropathy, unspecified; E78.5 Hyperlipidemia, unspecified; Z86.73 Personal history of transient ischemic attack (TIA), and cerebral infarction without residual deficits; I25.2 Old myocardial infarction; Z95.1 Presence of aortocoronary bypass graft; Z98.890 Other specified postprocedural states; Z79.4 Long term (current) use of insulin; Z79.82 Long term (current) use of aspirin
CPT/HCPCS: 36415; 36416; 80048; 80053; 80202; 83036; 83880; 84145; 85025; 85610; 85652; 85730; 86140; 87070; 87076; 87077; 87205; 88305; 88311; A9579; J0692; J0696; J1650; J1815; J2405; J2704; J3010; J3370; J3490; J7050; Q0162

== ENCOUNTER 2021-08-15 10:30 | Emergency (ER) | payer MEDICARE ==
[2021-08-15 12:10] LABS: #Eosinphils 0.2 thou/uL (0.0-0.7); #Lymphocytes 1.2 thou/uL (1.20-3.40); #Monocytes 0.4 thou/uL (0.11-0.59); #Neutrophils 3.9 thou/uL (1.40-6.50); %Eosinophils 2.8 % (0.0-10.0); %Lymphocytes 21.6 % (21.0-51.0); %Monocytes 6.6 % (0.0-10.0); %Neutrophils 68.9 % (42.0-75.0); Hemoglobin 11.8 g/dL (14.0-18.0); Mean Corpuscular HGB CONC 32.9 g/dL (32.0-36.0); Mean Corpuscular Hemoglobin 30.7 pg (27.0-31.0); Mean Corpuscular Volume 93.4 fL (78.0-98.0); Mean Platelet Volume 7.8 fL (7.4-10.4); Platelet Count 211 thou/uL (130-400); RBC Distribution Width 13.4 % (11.5-14.5); Red Blood Cell (RBC) Count 3.84 mill/uL (4.70-6.10); White Blood Cell (WBC) Count 5.6 thou/uL (4.8-10.8)
[2021-08-15 12:32] LABS: ALT (SGPT) 11 U/L (8-55); AST (SGOT) 15 U/L (5-34); Albumin 3.7 g/dL (3.4-4.8); Alkaline Phosphatase 68 U/L (40-110); Anion Gap 14 mmol/L (10-20); BUN (Urea Nitrogen) 16 mg/dL (8.4-25.7); Bilirubin, Total 0.4 mg/dL (0.2-1.2); CK (CPK) 55 U/L (30-200); Calc. Creatinine Clearance 0 mL/min (70-130); Calcium 9.4 mg/dL (7.8-10.44); Carbon Dioxide 26 mmol/L (23-31); Chloride 101 mmol/L (98-107); Glucose 247 mg/dL (80-115); Lipase 8 U/L (8-78); Magnesium 1.5 mg/dL (1.6-2.6); Potassium 4.8 mmol/L (3.5-5.1); Protein, Total 6.7 g/dL (5.8-8.1); Sodium 136 mmol/L (136-145)
[2021-08-15 12:52] LABS: Bilirubin Negative (Negative); Blood, Urine Negative (Negative); Clarity Clear (Clear); Glucose, Urine (Dipstick) 500 mg/dL (Negative); Ketone, Urine 20 mg/dL (Negative); Leukocyte Negative Leu/uL (Negative); Nitrite Negative (Negative); Protein, Urine (Dipstick) 10 mg/dL (Neg-Trace); Specific Gravity, Urine 1.012 (1.002-1.036); Urobilinogen Normal mg/dL (Less than 2)
[2021-08-15] MEDS ORDERED: Magnesium 2 GM/50 ML BAG (IN WATER) ONE (13:23)
[2021-08-15] MEDS ORDERED: Acetaminophen 500 MG TAB ONE (13:23)
[2021-08-15 22:47] LABS: SARS-CoV-2 PCR by NAA Not Detected (NotDetected)
== END 2021-08-15 16:08 | disposition home or self-care (01) ==
LOC: ERS 10:30
DX: E11.65 Type 2 diabetes mellitus with hyperglycemia (principal); E83.42 Hypomagnesemia; E86.0 Dehydration; Z20.822 Contact with and (suspected) exposure to COVID-19; I25.2 Old myocardial infarction; E78.00 Pure hypercholesterolemia, unspecified; F17.220 Nicotine dependence, chewing tobacco, uncomplicated; Z79.4 Long term (current) use of insulin; Z79.899 Other long term (current) drug therapy
CPT/HCPCS: 70450; 71045; 80053; 81003; 82550; 82962; 83690; 83735; 84484; 85025; 87804 ×2; 93005; U0003; U0005; 36415; 36416; 96365; 96366; J3475

== ENCOUNTER 2021-10-15 14:07 | Emergency (ER) | payer SELFPAY ==
[2021-10-15 15:04] LABS: #Eosinphils 0.2 thou/uL (0.0-0.7); #Lymphocytes 1.6 thou/uL (1.20-3.40); #Monocytes 0.4 thou/uL (0.11-0.59); #Neutrophils 4.8 thou/uL (1.40-6.50); %Basophils 0.2 % (0.0-1.0); %Eosinophils 3.5 % (0.0-10.0); %Lymphocytes 22.4 % (21.0-51.0); Hemoglobin 11.4 g/dL (14.0-18.0); Mean Corpuscular HGB CONC 32.9 g/dL (32.0-36.0); Mean Corpuscular Hemoglobin 31.1 pg (27.0-31.0); Mean Corpuscular Volume 94.6 fL (78.0-98.0); Mean Platelet Volume 7.7 fL (7.4-10.4); Platelet Count 229 thou/uL (130-400); RBC Distribution Width 13.5 % (11.5-14.5); Red Blood Cell (RBC) Count 3.68 mill/uL (4.70-6.10)
[2021-10-15 15:33] LABS: ALT (SGPT) 7 U/L (8-55); AST (SGOT) 12 U/L (5-34); Albumin 3.9 g/dL (3.4-4.8); Alkaline Phosphatase 61 U/L (40-110); Anion Gap 14 mmol/L (10-20); BUN (Urea Nitrogen) 17 mg/dL (8.4-25.7); Bilirubin, Total 0.3 mg/dL (0.2-1.2); Calc. Creatinine Clearance 0 mL/min (70-130); Calcium 9.6 mg/dL (7.8-10.44); Carbon Dioxide 26 mmol/L (23-31); Chloride 101 mmol/L (98-107); Estimated GFR 83; Globulin 2.7 g/dL (2.4-3.5); Glucose 196 mg/dL (80-115); Potassium 4.6 mmol/L (3.5-5.1); Protein, Total 6.6 g/dL (5.8-8.1); Sodium 136 mmol/L (136-145)
[2021-10-15 16:06] LABS: Bacteria/HPF None Seen HPF (None Seen); Bilirubin Negative (Negative); Blood, Urine Negative (Negative); Clarity Clear (Clear); Glucose, Urine (Dipstick) 30 mg/dL (Negative); Ketone, Urine Negative (Negative); Leukocyte Negative Leu/uL (Negative); Nitrite Negative (Negative); Protein, Urine (Dipstick) 50 mg/dL (Neg-Trace); RBC/HPF 0-3 HPF (0-3); Specific Gravity, Urine 1.017 (1.002-1.036); Squamous Epithelial None Seen HPF (0-3); Urobilinogen Normal mg/dL (Less than 2); WBC/HPF 0-3 HPF (0-3); pH, Urine 6.5 (5.0-9.0)
[2021-10-15] MEDS ORDERED: Metoclopramide HCl 10 MG TAB ONE (16:24)
[2021-10-15] MEDS ORDERED: diphenhydrAMINE 25 MG CAP ONE (16:24)
== END 2021-10-15 17:05 | disposition home or self-care (01) ==
LOC: ERS 14:07
DX: R53.1 Weakness (principal); R05.9 Cough, unspecified; Z86.16 Personal history of COVID-19; I25.2 Old myocardial infarction; E11.9 Type 2 diabetes mellitus without complications; Z79.4 Long term (current) use of insulin; E78.00 Pure hypercholesterolemia, unspecified; I10 Essential (primary) hypertension; F17.220 Nicotine dependence, chewing tobacco, uncomplicated; Z79.899 Other long term (current) drug therapy; Z86.73 Personal history of transient ischemic attack (TIA), and cerebral infarction without residual deficits
CPT/HCPCS: 36415; 71045; 80053; 81003; 81015; 84484; 85025; 93005

== ENCOUNTER 2021-12-24 14:36 | Emergency (ER) | payer MEDICARE ==
[2021-12-24 17:50] LABS: #Eosinphils 0.1 thou/uL (0.0-0.7); #Lymphocytes 1.9 thou/uL (1.20-3.40); #Monocytes 0.4 thou/uL (0.11-0.59); #Neutrophils 4.1 thou/uL (1.40-6.50); %Basophils 0.2 % (0.0-1.0); %Eosinophils 1.7 % (0.0-10.0); %Lymphocytes 29.3 % (21.0-51.0); %Monocytes 6.5 % (0.0-10.0); %Neutrophils 62.3 % (42.0-75.0); Hemoglobin 11.9 g/dL (14.0-18.0); Mean Corpuscular Hemoglobin 32.1 pg (27.0-31.0); Mean Corpuscular Volume 97.3 fL (78.0-98.0); Mean Platelet Volume 8.4 fL (7.4-10.4); Platelet Count 177 thou/uL (130-400); RBC Distribution Width 12.2 % (11.5-14.5); White Blood Cell (WBC) Count 6.5 thou/uL (4.8-10.8)
[2021-12-24] MEDS ORDERED: Meclizine HCl 25 MG TAB ONE ×2 (17:50→18:07)
[2021-12-24 18:13] LABS: ALT (SGPT) 11 U/L (8-55); AST (SGOT) 13 U/L (5-34); Albumin 3.8 g/dL (3.4-4.8); Alkaline Phosphatase 65 U/L (40-110); Anion Gap 10 mmol/L (10-20); BUN (Urea Nitrogen) 29 mg/dL (8.4-25.7); Bilirubin, Total 0.5 mg/dL (0.2-1.2); CK (CPK) 56 U/L (30-200); Calc. Creatinine Clearance 0 mL/min (70-130); Calcium 9.4 mg/dL (7.8-10.44); Carbon Dioxide 29 mmol/L (23-31); Chloride 102 mmol/L (98-107); Estimated GFR 59; Globulin 2.5 g/dL (2.4-3.5); Glucose 89 mg/dL (80-115); Potassium 4.6 mmol/L (3.5-5.1); Protein, Total 6.3 g/dL (5.8-8.1); Sodium 136 mmol/L (136-145)
== END 2021-12-24 20:09 | disposition home or self-care (01) ==
LOC: ERS 14:36
DX: R42 Dizziness and giddiness (principal); I45.10 Unspecified right bundle-branch block; I10 Essential (primary) hypertension; E11.9 Type 2 diabetes mellitus without complications; I25.2 Old myocardial infarction; E78.00 Pure hypercholesterolemia, unspecified; F17.220 Nicotine dependence, chewing tobacco, uncomplicated; Z86.73 Personal history of transient ischemic attack (TIA), and cerebral infarction without residual deficits; Z95.1 Presence of aortocoronary bypass graft; Z89.422 Acquired absence of other left toe(s); Z79.4 Long term (current) use of insulin; Z79.84 Long term (current) use of oral hypoglycemic drugs; Z79.899 Other long term (current) drug therapy
CPT/HCPCS: 36415; 80053; 82550; 85025; 93005

== ENCOUNTER 2023-11-03 15:16 | Outpatient (CLI) | payer MEDICARE | END 2023-11-03 15:17 | disposition home or self-care (01) | LOC: SCSRAD 15:16 | PROVIDERS: ATTEND Family Medicine | DX: R50.9 Fever, unspecified (principal) | CPT/HCPCS: 71046 ==